=== PATIENT | female | born 1960 | race African-American/Black ===

== ENCOUNTER 2020-09-05 12:10 | Outpatient (CLI) | payer OTHER, SELFPAY ==
--- NOTE | ~2020-09-05 | US_ITS ---
EXAMINATION:US venous doppler LE LT INDICATION:Left leg pain TECHNIQUE: Multiple grayscale, color flow and Doppler images of the left lower extremity deep venous systems were obtained and reviewed. COMPARISON:No prior studies for comparison. FINDINGS: The common femoral, superficial femoral and popliteal veins demonstrate normal respiratory variation, augmentation and compressibility. Color flow is also seen within the posterior tibial, pe roneal, greater saphenous and profunda veins. IMPRESSION: 1: No lower extremity deep venous thrombosis. Reviewed, dictated and finalized at location A.
[2020-09-05 13:30] LABS: Hemoglobin A1C 6.3 % (<5.7)
[2020-09-05 13:31] LABS: Alanine Aminotransferase 81 U/L (4-35); Albumin Level 4.2 g/dL (3.5-5.1); Alkaline Phosphatase 83 U/L (38-126); Anion Gap 4 mmol/L (8-16); Aspartate Amino Transferase 56 U/L (14-36); Basophils Percent Auto 0.2 % (0.2-1.2); Bilirubin,Total 0.2 mg/dL (0.2-1.3); Blood Urea Nitrogen 14 mg/dL (7-17); Calcium 9.7 mg/dL (8.4-10.2); Carbon Dioxide 32 mmol/L (22-30); Chloride 104 mmol/L (98-107); Cholesterol 170 mg/dL (0-200); Eosinophils Absolute Auto 0.1 K/mm3 (0-0.3); Eosinophils Percent Auto 1.6 % (0-4.4); Estimated Glomerular Filt Rate > 60; Glucose 91 mg/dL (65-105); HDL Direct 53 mg/dL; Hematocrit 37.4 % (37.0-47.0); Hemoglobin 11.7 g/dL (12.0-15.0); Immature Granulocyte Absolute 0.01 K/mm3 (0.00-0.031); Immature Granulocyte Percent A 0.2 % (0-0.5); Lymphocytes Absolute Auto 3.12 K/mm3 (0.9-3.2); Lymphocytes Percent Auto 50.1 % (18.3-44.2); Mean Corpuscular HGB Conc 31.3 g/dl (32-36); Mean Corpuscular Hemoglobin 26.5 pg (26-34); Mean Corpuscular Volume 84.6 fl (80-100); Mean Platelet Volume 10.2 fl (7.4-10.4); Monocytes Absolute Auto 0.6 K/mm3 (0.1-0.6); Neutrophils Absolute Auto 2.4 K/mm3 (1.3-6.7); Neutrophils Percent Auto 38.9 % (45.5-73.1); Platelet Count Result 304 k/mm3 (150-375); Potassium 3.8 mmol/L (3.4-5.0); Red Blood Count 4.42 M/mm3 (4.2-5.4); Red Cell Distribution Width 14.6 % (11.5-14.5); Sodium 140 mmol/L (137-145); Triglycerides 75 mg/dL (<150); White Blood Count 6.2 K/mm3 (4.5-10.0)
[2020-09-05 13:42] LABS: LDL Cholesterol Direct 80 mg/dL
[2020-09-05 13:50] LABS: Microalbumin Urine Random 7.9 mg/L (0-16.7)
[2020-09-05 13:52] LABS: Creatinine Urine 130.4 mg/dL; MALB Creatinine Ratio 6.1 mg/g (0-30)
== END 2020-09-05 12:11 | disposition home or self-care (01) ==
LOC: ANHIMG 12:14
PROVIDERS: PCP Internal Medicine; Visit Provider Internal Medicine
DX: M79.662 Pain in left lower leg (principal); E11.9 Type 2 diabetes mellitus without complications; Z86.39 Personal history of other endocrine, nutritional and metabolic disease; I10 Essential (primary) hypertension
CPT/HCPCS: 36415; 80053; 80061; 82043; 83036; 84443; 85025; 93971

== ENCOUNTER 2020-09-07 10:18 | Outpatient (CLI) | payer OTHER, SELFPAY ==
--- NOTE | ~2020-09-07 | MM_ITS ---
EXAMINATION: MM screening pamela BI w monie HISTORY: Screening mammogram TECHNIQUE: Craniocaudal and mediolateral oblique 3-D tomosynthesis images were obtained and synthetic 2-D images were generated. CAD analysis was submitted and interpreted. COMPARISON: No prior mammogram is available for comparison at this institution. BREAST PARENCHYMAL COMPOSITION: The breasts are almost entirely fatty. FINDINGS: There is no evidence of suspicious mass, calcification, or architectural distortion to sugg est malignancy in either breast. IMPRESSION: 1. No mammographic evidence of malignancy. 2. Recommend routine screening mammography in one year. BI-RADS Category 1: Negative Reviewed, dictated and finalized at location A.
== END 2020-09-07 10:19 | disposition home or self-care (01) ==
LOC: ANHIMG 10:21
PROVIDERS: PCP Internal Medicine; Visit Provider Internal Medicine
DX: Z12.31 Encounter for screening mammogram for malignant neoplasm of breast (principal)
CPT/HCPCS: 77063; 77067

== ENCOUNTER 2020-09-27 08:06 | Outpatient (CLI) | payer OTHER, SELFPAY ==
--- NOTE | ~2020-09-27 | US_ITS ---
EXAMINATION: US abdomen limited DATE: 09/27/2020 08:37 INDICATION: Elevated liver function tests TECHNIQUE: Multiple grayscale and Doppler ultrasound images of the abdomen were obtained. COMPARISON: None available FINDINGS: The head and body of the pancreas are normal. The pancreatic tail is obscured by bowel gas. The liver demonstrates increased echogenicity, heterogenous echotexture, and decreased through trans mission. No surface nodularity. Normal hepatopetal flow in the main portal vein. The gallbladder is n ormal with no abnormal wall thickening, pericholecystic fluid or stones. The normal common bile duct measures 4 mm. There was no sonographic Vazquez sign. IMPRESSION: 1. Diffuse hepatic steatosis. Reviewed, dictated and finalized at location B.
== END 2020-09-27 08:07 | disposition home or self-care (01) ==
PROVIDERS: PCP Internal Medicine; Visit Provider Internal Medicine
DX: K76.0 Fatty (change of) liver, not elsewhere classified (principal); R74.8 Abnormal levels of other serum enzymes
CPT/HCPCS: 76705

== ENCOUNTER → 2020-12-30 00:40 | Outpatient (CLI) | payer OTHER, SELFPAY ==
[2020-12-30 16:45] LABS: SARS-CoV-2 RNA PCR Negative
== END ==
PROVIDERS: PCP Internal Medicine; Visit Provider Internal Medicine Gastroenterology
DX: Z01.812 Encounter for preprocedural laboratory examination (principal); Z20.822 Contact with and (suspected) exposure to COVID-19
CPT/HCPCS: C9803; U0003; U0005

== ENCOUNTER 2021-01-03 01:22 | Day surgery (SDC) | payer OTHER, SELFPAY ==
[2020-12-20 14:10] VITALS: BMI 45.2
--- NOTE | 2021-01-02 09:16 | P.PNAN_ITS ---
Anes - Initial Pre Proc Eval Procedure: Operation Date: 01/03/21 09:30 Proposed Procedures p Screening Colonoscopy - Mao Quinones MD Date/Time: 01/02/21 09:16 Surgeon: Mao Quinones MD Pre Op Diagnosis: neoplasm screening Patient Data Age: 60 Gender: F Height: 1.6 m Weight: 115.9 kg Allergies Allergy/AdvReac Type Severity Reaction Status Date / Time codeine Allergy Room Verified 12/20/20 14:10 spinning Home Medications Medication Instructions Recorded Confirmed Type aspirin 81 mg tablet,delayed 81 mg PO DAILY 09/05/20 01/03/21 History release cholecalciferol (vitamin D3) 125 5,000 unit PO DAILY cap 09/05/20 01/03/21 History mcg (5,000 unit) capsule fluticasone propionate [Flonase] 2 spray INTRANASAL DAILY 01/03/21 01/03/21 History Patient hx anesthesia problems: none Family hx anesthesia problems: none [facility] Past Medical History Medical History (Updated 01/03/21 @ 08:35 by Alonzo Chiu DO) Morbid obesity due to excess calories Surgical History Surgical History (Updated 09/05/20 @ 10:14 by Adriana Conner CMA) H/O dilation and curettage Family History Family History (Updated 09/05/20 @ 10:08 by Adriana Conner CMA) Sibling Heart disease Social History Social History (Updated 09/05/20 @ 10:08 by Adriana Conner [facility]) Smoking status: Never smoker Alcohol intake: never Substance use type: does not use Living arrangements: with family Gender identity (if verbalized by the patient): Female Anes - Eval Final PreProcedure Day of Procedure 01/02/21 09:16 Patient weight: morbidly obese Heart: regular rate and rhythm Lungs: clear to auscultation and normal air movement Airway: Mallampati scale class II Neurological: alert and oriented Last oral intake: >/= 8 hours ASA classification: III Emergent: no Anesthetic plan: proceed Anesthesia type and monitoring: general GIVS and standard monitoring Informed Consent: The patient's anesthetic plan and its attendant risks and benefits were discussed with the patient/family/POA. Questions were solicited and answers provided to the satisfaction of the patient/family/POA.
[2021-01-03 08:15] VITALS: BP 150/81; PULSE 73; RESP 17; TEMP 36; O2SAT 99
[2021-01-03] MEDS: LACTATED RINGERS 1,000 ML 150 ML IV CONT (08:20)
--- NOTE | 2021-01-03 09:26 | PM.HPGS ---
History of Present Illness History of Present Illness Consent: Risks, benefits, and alternatives have been discussed and questions answered. Patient agrees to proceed with procedure. Chief complaint: neoplasm screening Narrative: Lynn Marques is a 60 year old female referred for colon cancer screening Review of Systems Review of Systems: All systems reviewed & are unremarkable except as noted in HPI and below PMFSH Past Medical History Medical History Morbid obesity due to excess calories Surgical History Surgical History H/O dilation and curettage Family History Family History Sibling Heart disease Social History Social History Smoking status: Never smoker Alcohol intake: never Substance use type: does not use Living arrangements: with family Gender identity (if verbalized by the patient): Female Meds Home Medications and Allergies Home Medications Medication Instructions Recorded Confirmed Type aspirin 81 mg tablet,delayed 81 mg PO DAILY 09/05/20 01/03/21 History release cholecalciferol (vitamin D3) 125 5,000 unit PO DAILY cap 09/05/20 01/03/21 History mcg (5,000 unit) capsule fluticasone propionate [Flonase] 2 spray INTRANASAL DAILY 01/03/21 01/03/21 History Allergies Allergy/AdvReac Type Severity Reaction Status Date / Time [facility] Allergy Room Verified 12/20/20 14:10 spinning Vital Signs Vital Signs - 24 hr 01/03/21 08:15 Temperature 36.0 C L Pulse Rate 73 Respiratory Rate 17 Blood Pressure 150/81 H Pulse Oximetry 99 Exam Const: General: alert Orientation/consciousness: patient oriented x3 Resp: Auscultation: clear to auscultation bilaterally Cardio: Rhythm: regular rhythm GI: GI Palp: Yes Soft to palpation and No Tenderness to palpation present (GI) Neuro: General: patient oriented x3 Assessment and Plan Assessment and plan (1) Colon cancer screening: Code(s): Z12.11 - Encounter for screening for malignant neoplasm of colon Status: Acute
[2021-01-03 09:52] VITALS: BP 129/76; PULSE 61; RESP 17; O2SAT 100
[2021-01-03 10:02] VITALS: BP 132/77; PULSE 60; RESP 20; O2SAT 100
[2021-01-03 10:12] VITALS: BP 134/78; PULSE 68; RESP 22; O2SAT 99
== END 2021-01-03 10:17 | disposition home or self-care (01) ==
PROVIDERS: PCP Internal Medicine; Visit Provider Internal Medicine Gastroenterology
PROC: 0DJD8ZZ Inspection of Lower Intestinal Tract, Via Natural or Artificial Opening Endoscopic (ICD-10-PCS; CPT 45378; principal; 2021-01-03 09:30)
DX: Z12.11 Encounter for screening for malignant neoplasm of colon (principal); D12.0 Benign neoplasm of cecum; K63.5 Polyp of colon; Z79.82 Long term (current) use of aspirin; E66.01 Morbid (severe) obesity due to excess calories; Z68.41 Body mass index [BMI] 40.0-44.9, adult
CPT/HCPCS: 45385; 88305; C9803; J2704; J7120; U0003; U0005

== ENCOUNTER 2021-01-05 09:35 | Outpatient (CLI) | payer OTHER, SELFPAY ==
[2021-01-05 12:05] LABS: Hemoglobin A1C 6.7 % (<5.7)
== END 2021-01-05 09:36 | disposition home or self-care (01) ==
PROVIDERS: PCP Internal Medicine; Visit Provider Internal Medicine
DX: Z86.39 Personal history of other endocrine, nutritional and metabolic disease (principal)
CPT/HCPCS: 36415; 83036

== ENCOUNTER 2021-01-24 20:16 | Inpatient (IN) | payer OTHER, SELFPAY ==
[2021-01-24] VITALS (12 sets, daily range): BP systolic 126–150; BP diastolic 77–94; PULSE 93–105; RESP 31–49; TEMP 37.1; O2SAT 50–100
--- NOTE | ~2021-01-24 | XR_ITS ---
XR chest 1V portable 01/31/2021 06:36 Indication: Respiratory failure Procedure: AP portable chest Comparison: Comparison to multiple prior studies sequentially, with oldest reviewed study dated 01/24. Findings: Stable extensive patchy bilateral airspace disease. No significant effusion or pneumothorax . Heart size normal. No acute osseous abnormality. Impression: 1: Stable extensive patchy bilateral airspace disease, most likely pneumonia versus edema. Reviewed, dictated and finalized at location A. Impression: 1: Stable extensive patchy bilateral airspace disease, most likely pneumonia ve rsus edema.
--- NOTE | ~2021-01-24 | CT_ITS ---
EXAMINATION: CTA chest PE protocol DATE: 01/25/2021 10:13 INDICATION: Shortness of breath. TECHNIQUE: Computed tomography angiography (CTA) of the chest was performed with 100 mL Omnipaque-350 intravenous contrast timed to evaluate the pulmonary arteries. Coronal maximum intensity projection 3D-reconstructions were created by the technologist. Automated exposure control and iterative reconst ruction technique were employed. The dose-length product was 741.63 mGy-cm. COMPARISON: Chest 2 views 01/24/2021 FINDINGS: There are airspace opacities and ground glass opacities involving all lobes with a peripher al predominance. No pleural effusion. Cardiomegaly is noted. No pericardial effusion. There is no pul monary embolus. There is mild thoracic spondylosis. There is mild chronic anterior wedging of T7 and T8 vertebral bodies. IMPRESSION: 1. No pulmonary embolus. Sensitivity is mildly decreased by motion artifact. 2. Severe diffuse lung disease, consistent with pneumonia such as COVID-19 pneumonia. 3. Cardiomegaly. Reviewed, dictated and finalized at location A. IMPRESSION: 1. No pulmonary embolus. Sensitivity is mildly decreased by motion artifact. 2. Severe diffuse lung disease, consistent with pneumonia such as COVID-19 pneu monia. 3. Cardiomegaly.
--- NOTE | ~2021-01-24 | XR_ITS ---
EXAMINATION: XR chest 1V portable INDICATION: Respiratory failure TECHNIQUE: Portable AP chest at 0511 hours COMPARISON: 01/27/2021 FINDINGS: Diffuse opacities persist in all lung zones without significant change. There is no pleural effusion or pneumothorax. The cardiomediastinal silhouette is stable. IMPRESSION: 1. Stable diffuse lung disease, consistent with pneumonia and/or pulmonary edema and/or acute respira tory distress syndrome (ARDS). Reviewed, dictated and finalized at location A. IMPRESSION: 1. Stable diffuse lung disease, consistent with pneumonia and/or pulmonary kole a and/or acute respiratory distress syndrome (ARDS).
--- NOTE | ~2021-01-24 | XR_ITS ---
EXAMINATION: XR chest 1V portable INDICATION: Respiratory failure TECHNIQUE: Portable AP chest at 0509 hours COMPARISON: 01/24/2021 FINDINGS: Diffuse opacities persist in all lung zones with slight worsening in the right upper lung z one. There is no pleural effusion or pneumothorax. The cardiomediastinal silhouette is normal. IMPRESSION: 1. Diffuse lung disease with interval worsening in the right upper lung zone, consistent with pneumon ia and/or pulmonary edema. Reviewed, dictated and finalized at location A. IMPRESSION: 1. Diffuse lung disease with interval worsening in the right upper lung zone, c onsistent with pneumonia and/or pulmonary edema.
--- NOTE | ~2021-01-24 | XR_ITS ---
XR chest 1V portable 01/29/2021 06:34 Indication: Respiratory failure Procedure: AP portable chest Comparison: Comparison to multiple prior studies sequentially, with oldest reviewed study dated 01/24. Findings: Heart size normal. Diffuse bilateral airspace disease. No significant effusion or pneumotho rax. No acute osseous abnormality. Impression: 1: Unchanged diffuse bilateral airspace disease which may represent pneumonia or edema. Reviewed, dictated and finalized at location A. Impression: 1: Unchanged diffuse bilateral airspace disease which may represent pneumonia o r edema.
--- NOTE | ~2021-01-24 | XR_ITS ---
EXAMINATION: XR chest 2V DATE: 01/24/2021 20:56 INDICATION: Shortness of breath and cough TECHNIQUE: frontal and lateral views of the chest were obtained. COMPARISON: None FINDINGS: Patchy airspace opacities in the bilateral mid and lower lung zones consistent with pneumonia. No ple ural effusion or pneumothorax. The cardiomediastinal silhouette is normal. Mild to moderate thoracic spondylosis. IMPRESSION: 1. Patchy bilateral lung disease consistent with pneumonia. Reviewed, dictated and finalized at location A.
--- NOTE | 2021-01-24 20:19 | ECG_ITS ---
Measurements Intervals [place] Rate: 108 P: 48 KS: 168 QRS: -19 QRSD: 83 T: 53 QT: 313 QTc: 420 Interpretive Statements SINUS TACHYCARDIA INFERIOR INFARCT, AGE INDETERMINATE BASELINE ARTIFACT- V1-V3 ABNORMAL ECG Electronically Signed On 01-25-2021 5:48:13 CDT by Kiran Camejo D.O.
--- NOTE | 2021-01-24 21:18 | PC.NURSE ---
Pt. son number [phone] call before any procedures on pt.
[2021-01-24 21:28] LABS: Basophils Percent Auto 0.1 % (0.2-1.2); Hematocrit 37.7 % (37.0-47.0); Hemoglobin 11.6 g/dL (12.0-15.0); Immature Granulocyte Absolute 0.07 K/mm3 (0.00-0.031); Immature Granulocyte Percent A 0.7 % (0-0.5); Lymphocytes Absolute Auto 1.88 K/mm3 (0.9-3.2); Mean Corpuscular HGB Conc 30.8 g/dl (32-36); Mean Corpuscular Hemoglobin 25.6 pg (26-34); Mean Corpuscular Volume 83.2 fl (80-100); Mean Platelet Volume 9.6 fl (7.4-10.4); Monocytes Absolute Auto 0.5 K/mm3 (0.1-0.6); Monocytes Percent Auto 5.2 % (2.6-8.5); Platelet Count Result 337 k/mm3 (150-375); Red Blood Count 4.53 M/mm3 (4.2-5.4); White Blood Count 9.4 K/mm3 (4.5-10.0)
[2021-01-24 21:38] LABS: Anion Gap 7 mmol/L (8-16); Blood Urea Nitrogen 13 mg/dL (7-17); Calcium 9.6 mg/dL (8.4-10.2); Carbon Dioxide 30 mmol/L (22-30); Chloride 97 mmol/L (98-107); Estimated CRCL calculation 87 ml/min; Estimated Glomerular Filt Rate > 60; Glucose 155 mg/dL (65-110); Potassium 3.5 mmol/L (3.4-5.0); Sodium 134 mmol/L (137-145)
[2021-01-24] MEDS: DEXAMETHASONE SOD PHOS INJ 4 MG/ML VIAL 6 MG IV PUSH (21:55)
[2021-01-24 22:17] LABS: Lactic Acid Reflex 1.1 mmol/L (0.7-2.1)
[2021-01-24 22:18] LABS: Alanine Aminotransferase 51 U/L (4-35); Albumin Level 3.6 g/dL (3.5-5.1); Alkaline Phosphatase 63 U/L (38-126); Anion Gap 5 mmol/L (8-16); Aspartate Amino Transferase 61 U/L (14-36); Bilirubin,Total 0.4 mg/dL (0.2-1.3); Blood Urea Nitrogen 13 mg/dL (7-17); Calcium 9.2 mg/dL (8.4-10.2); Carbon Dioxide 29 mmol/L (22-30); Chloride 95 mmol/L (98-107); Estimated CRCL calculation 100 ml/min; Estimated Glomerular Filt Rate > 60; Glucose 155 mg/dL (65-110); Potassium 3.5 mmol/L (3.4-5.0); Sodium 129 mmol/L (137-145)
[2021-01-24 22:21] LABS: Prothrombin Time 12.8 Seconds (11.1-14.7)
[2021-01-24 22:29] LABS: Troponin I < 0.012 ng/mL (0.000-0.034)
--- NOTE | 2021-01-24 22:52 | ED.SOB ---
HPI - SOB/Dyspnea General Chief Complaint: Shortness of Breath/Dyspnea Stated Complaint: pneumonia - want a chest xray Time Seen by Provider: 01/24/21 21:07 Source: patient and family Mode of arrival: ambulatory Limitations: no limitations History of Present Illness HPI Narrative: 61-year-old with a no major medical problems was brought in by family with complaints of cough and shortness of breath for past 1 week . Family brought IN for chest x-ray. Patient denies any chest pain, nausea or vomiting. Patient has not been vaccinated against Covid. MD elicited complaint: shortness of breath and cough Onset (ago): week(s) (1) Timing: constant Exacerbating factors: nothing Related Data Home oxygen amount: none Home Medications Medication Instructions Recorded Confirmed No Home Medications 01/24/21 01/24/21 Allergies Allergy/AdvReac Type Severity Reaction Status Date / Time codeine Allergy Room Verified 01/24/21 21:19 spinning Review of Systems Review of Systems: All systems reviewed & are unremarkable except as noted in HPI and below Constitutional: Constitutional: Reports no additional constitutional complaints ENT: Reports system reviewed and no additional complaints, except as documented Cardiovascular: Cardiovascular: Reports no additional cardiovascular complaints Respiratory: Respiratory: Reports as per HPI Gastrointestinal: Gastrointestinal: Reports no additional gastrointestinal complaints Musculoskeletal: Musculoskeletal: Reports no additional musculoskeletal complaints PMFSH Past Medical History Medical History Morbid obesity due to excess calories Surgical History Surgical History H/O dilation and curettage Family History Family History Sibling Heart disease Social History Social History Smoking status: Never smoker Alcohol intake: never Substance use type: does not use Gender identity (if verbalized by the patient): Female Exam Narrative: GENERAL: Well-appearing, well-nourished, and in moderate respiratory distress. HEAD: Normocephalic, atraumatic. EYES: PERRLA and EOMI. NECK: Supple. CHEST: Decreased air entry HEART: Regular rate and rhythm. No murmur heard. Normal peripheral pulses. ABDOMEN: Soft, nontender, nondistended, normal active bowel sounds. EXTREMITIES: Normal range of motion. No edema. SKIN: Warm, dry, no rash. NEURO: No focal deficits. Alert and oriented x3. PSYCH: Normal mood and affect. Course Course Emergency Course: Inform patient about her lab work, chest x-ray findings I discussed with her son informed him about the x-ray findings. She will be admitted to the hospital. We will start her on IV antibiotic till we get the Covid screen. I discussed with Dr. Silveira who agreed to admit the patient Vital Signs Vital signs: Vital Signs Temperature 37.1 C 01/24/21 21:13 Pulse Rate 105 H 01/24/21 21:13 Respiratory Rate 39 H 01/24/21 21:13 Blood Pressure 141/77 H 01/24/21 21:13 Pulse Oximetry 50 L 01/24/21 21:13 Temperature 37.1 C 01/24/21 21:13 Pulse Rate 99 01/24/21 22:31 Respiratory Rate 38 H 01/24/21 22:31 Blood Pressure 146/90 H 01/24/21 22:31 Pulse Oximetry 97 01/24/21 22:01 MDM - SOB/Dyspnea MDM Narrative Medical decision making narrative: With a given history of of progressive shortness of breath for past 1 week and patient has not been vaccinated I suspect more Covid pneumonia however we will do CBC chemistry blood cultures and a chest x-ray meanwhile we will start her on Rocephin and Zithromax we will also give her IV Decadron 6 mg. Lab Data Result diagrams: 01/24/21 21:22 01/24/21 21:50 Labs: Lab Results 01/24/21 01/24/21 01/24/21 Range/Units 21:22 21:22 21:
--- NOTE | 2021-01-24 23:12 | PC.NURSE ---
Respiratory to room at this time.
--- NOTE | 2021-01-24 23:35 | PC.NURSE ---
Family consulted about antibiotics at this time per request of pt. Importance of antibiotics in pt's treatment plan thoroughly discussed with pt's family. Family requesting time to think about whether or not they would like to allow administration of antibiotics.
--- NOTE | 2021-01-24 23:43 | PCRCNOTE ---
Attempted HFNC at 15 lpm at 2330, SpO2 would not get higher than 87%. Placed back on 100% NRB, nurse and physician notified.
--- NOTE | 2021-01-24 23:59 | PC.NURSE ---
Consent for antibiotic administration given by children.
[2021-01-25] VITALS (25 sets, daily range): BP systolic 124–163; BP diastolic 74–96; PULSE 74–96; RESP 18–36; TEMP 36.4–37.8; O2SAT 83–97; BMI 44.1
--- NOTE | 2021-01-25 00:17 | PC.NURSE ---
Unit reports SBAR not received, SBAR to be tubed.
--- NOTE | 2021-01-25 00:53 | PC.NURSE ---
This patient, Lynn Marques, was admitted to 3 Med Surg Room 331-01 @01:00. Report taken from Summer RN in ED. Patient/family oriented to hospital policies and general routines including ID bracelet, bed and alarms, visiting hours, pain management, procedures, bathroom and other care routines, personal items, smoking policy, room service/diet, and visiting hours. Information on how to activate the Rapid Response Team has been discussed. Patient/Family are encouraged to report perceived risks to care and to ask questions if they do not understand what they are told or what they should do.
[2021-01-25] MEDS: ACETAMINOPHEN 325 MG TABLET 650 MG PO ×2 (01:44→23:59)
[2021-01-25] MEDS: SODIUM CHLORIDE 0.9% IV 1,000 ML 75 ML IV CONT (02:42)
--- NOTE | 2021-01-25 03:56 | PM.IMHP ---
H&P: HPI History of Present Illness Date/Time: 01/25/21 03:56 Chief Complaint: Shortness of breath Narrative: 61-year-old with a no major medical problems was brought in by family with complaints of cough and shortness of breath for past 1 week . Family brought IN for chest x-ray and evaluation. Patient denies any chest pain, nausea or vomiting. Patient has not been vaccinated against Covid. SHE REPORTS FLU-LIKE SYMPTOMS WITH COUGH AND SHORTNESS OF BREATH OVER PAST WEEK WITH PROGRESSIVE WORSENING. IN THE ER SHE WAS NOTED TO BE HYPOXIC AT 50% ON ROOM AIR AND WAS PLACED ON NON-REBREATHER MASK. SHE FEELS BETTER SINCE HE HAS BEEN ON NON-REBREATHER MASK. Review of Systems Review of Systems: - CONSTITUTIONAL: Denies weight loss, fever and chills. - HEENT: Denies changes in vision and hearing - RESPIRATORY: REPORTS SOB and cough. - CV: Denies palpitations and CP. - GI: Denies abdominal pain, nausea, vomiting and diarrhea. - : Denies dysuria and urinary frequency. - MSK: Denies myalgia and joint pain. - SKIN: Denies rash and pruritus. - NEUROLOGICAL: Denies headache and syncope. - PSYCHIATRIC: Denies recent changes in mood. Denies anxiety and depression. All systems reviewed & are unremarkable except as noted in HPI and below Constitutional: Constitutional: Reports fatigue and Reports weakness Neurologic: Reports weakness Endocrine: Endocrine: Reports fatigue PMFSH Past Medical History Medical History Morbid obesity due to excess calories Surgical History Surgical History H/O dilation and curettage Family History Family History Sibling Heart disease Social History Social History Smoking status: Never smoker Alcohol intake: never Substance use: never Substance use type: does not use Gender identity (if verbalized by the patient): Female Spiritual care concerns: No Meds Home Medications and Allergies Home Medications Medication Instructions Recorded Confirmed Type No Home Medications 01/24/21 01/24/21 History Allergies Allergy/AdvReac Type Severity Reaction Status Date / Time codeine Allergy Room Verified 01/24/21 21:19 spinning Vital Signs Vital Signs - 24 hr 01/24/21 21:13 01/24/21 21:14 01/24/21 21:16 Temperature 98.7 F Pulse Rate 105 H 104 H 105 H Respiratory Rate 39 H 41 H 37 H Blood Pressure 141/77 H 141/77 H 138/83 Pulse Oximetry 50 L 90 91 01/24/21 21:17 01/24/21 21:31 01/24/21 21:46 Temperature Pulse Rate 103 H 102 H 102 H Respiratory Rate 45 H 49 H Blood Pressure 140/84 126/85 Pulse Oximetry 90 95 95 01/24/21 22:01 01/24/21 22:16 01/24/21 22:31 Temperature Pulse Rate 101 H 99 99 Respiratory Rate 33 H 37 H 38 H Blood Pressure 139/86 144/87 H 146/90 H Pulse Oximetry 97 01/24/21 22:47 01/24/21 23:01 01/24/21 23:47 Temperature Pulse Rate 98 97 93 Respiratory Rate 42 H 44 H 31 H Blood Pressure 133/94 H 146/89 H 150/89 H Pulse Oximetry 94 100 92 01/25/21 00:17 01/25/21 00:32 01/25/21 00:47 Temperature Pulse Rate 85 86 86 Respiratory Rate 31 H 32 H 36 H Blood Pressure 151/96 H 124/74 145/93 H Pulse Oximetry 94 95 95 01/25/21 01:05 01/25/21 01:44 Temperature 100.0 F H 100.0 F H Pulse Rate 87 Respiratory Rate 20 Blood Pressure 133/85 Pulse Oximetry 91 Exam Narrative: GENERAL: Well-appearing, well-nourished, and in NO ACUTE respiratory distress. HEAD: Normocephalic, atraumatic. EYES: PERRLA and EOMI. NECK: Supple. NONTENDER CHEST: Decreased air entry BILATERAL DECREASED BREATH SOUNDS NO RESPIRATORY DISTRESS HEART: Regular rate and rhythm. No murmur heard. Normal peripheral pulses. ABDOMEN: Soft, nontender, nondistended, normal active bowel sounds. EXTREMITIES: Normal range of
[2021-01-25 07:10] LABS: Basophils Percent Auto 0.1 % (0.2-1.2); Hematocrit 35.5 % (37.0-47.0); Hemoglobin 10.9 g/dL (12.0-15.0); Immature Granulocyte Absolute 0.07 K/mm3 (0.00-0.031); Lymphocytes Absolute Auto 1.15 K/mm3 (0.9-3.2); Lymphocytes Percent Auto 16.2 % (18.3-44.2); Mean Corpuscular HGB Conc 30.7 g/dl (32-36); Mean Corpuscular Hemoglobin 25.6 pg (26-34); Mean Corpuscular Volume 83.3 fl (80-100); Mean Platelet Volume 9.8 fl (7.4-10.4); Monocytes Absolute Auto 0.2 K/mm3 (0.1-0.6); Monocytes Percent Auto 3.1 % (2.6-8.5); Neutrophils Absolute Auto 5.7 K/mm3 (1.3-6.7); Neutrophils Percent Auto 79.6 % (45.5-73.1); Platelet Count Result 334 k/mm3 (150-375); Red Blood Count 4.26 M/mm3 (4.2-5.4); Red Cell Distribution Width 14.7 % (11.5-14.5); White Blood Count 7.1 K/mm3 (4.5-10.0)
[2021-01-25 07:22] LABS: Alanine Aminotransferase 50 U/L (4-35); Albumin Level 3.6 g/dL (3.5-5.1); Alkaline Phosphatase 63 U/L (38-126); Anion Gap 5 mmol/L (8-16); Aspartate Amino Transferase 59 U/L (14-36); Bilirubin,Total 0.3 mg/dL (0.2-1.3); Blood Urea Nitrogen 13 mg/dL (7-17); Calcium 9.3 mg/dL (8.4-10.2); Carbon Dioxide 31 mmol/L (22-30); Chloride 97 mmol/L (98-107); Estimated CRCL calculation 101 ml/min; Estimated Glomerular Filt Rate > 60; Glucose 183 mg/dL (65-110); Sodium 133 mmol/L (137-145)
[2021-01-25 07:41] LABS: D Dimer 1.02 ug/mL (<0.48)
[2021-01-25 08:18] LABS: CRP 16.2 mg/dL (<1.0)
[2021-01-25 08:40] LABS: Procalcitonin 0.4 ng/mL
[2021-01-25 08:48] LABS: NT Pro B Type Natriuretic Pept 68 pg/mL (5-100)
[2021-01-25 08:49] LABS: Alveolar/Arterial O2 Gradient 603.5 mmHg; Carboxyhemoglobin 0.3 % THb (0-2.0); Fractional Inspired Oxygen 100 %; HCO3 ABG 30.4 mEq/l (22.0-26.0); Methemoglobin ABG 0.1 %THb (0-1.5); Oxygen Saturation ABG 94.1 % (95.0-100.0); Oxyhemoglobin 92.1 % THb (90.0-100.0); PCO2 ABG 43.2 mmHg (35.0-45.0); PO2 ABG 66.3 mmHg (80.0-100.0); PO2 FiO2 Ratio Arterial Blood 0.66 %; Reduced Hemoglobin 7.5 %THb (0-5.0); Total Hemoglobin 12.3 g/dL (12.0-18.0); pH ABG 7.465 (7.350-7.450)
[2021-01-25 08:50] LABS: Device NON-REBREATHER MASK; Modified Allen's Test Pass; Site Drawn LEFT RADIAL
[2021-01-25 09:10] LABS: Hepatitis B Surface Antigen Negative (Negative)
[2021-01-25 09:16] LABS: HAV RESULT Negative (Negative); Hepatitis B Core IgM Result Negative (Negative)
[2021-01-25] MEDS: ENOXAPARIN 40 MG/0.4 ML SYRINGE SUB-Q ×2 (09:25→20:16)
[2021-01-25] MEDS: DEXAMETHASONE SOD PHOS INJ 4 MG/ML VIAL 6 MG IV PUSH ×2 (09:26→16:51)
[2021-01-25 09:27] LABS: INR 0.9; Prothrombin Time 12.2 Seconds (11.1-14.7)
[2021-01-25 09:28] LABS: Hepatitis C Virus Antibody Negative (Negative)
--- NOTE | 2021-01-25 09:30 | P.PNIM_ITS ---
Progress Note: A&P Assessment and Plan (1) COVID-19: Code(s): U07.1 - COVID-19 Status: Acute Assessment and Plan: * COVID swab came back positive * Patient upgraded to Bipap throughout the night * Redesivir and Toci were both infused * Decadron was increased to BID * Supportive care (2) Acute respiratory failure: Code(s): J96.00 - Acute respiratory failure, unspecified whether with hypoxia or hypercapnia Status: Acute Assessment and Plan: * COVID vs pneumonia * White blood cell count 7.1 * COVID pending * Supplemental oxygen * PULM consult * Supportive care * CTA of the chest to rule out PE * Blood gas shows partially compensated respiratory alkalosis * Maintain saturation above 92% (3) Pneumonia: Qualifiers: Laterality: bilateral Lung location: lower lobe of lung Pneumonia type: due to unspecified organism Qualified Code(s): J18.9 - Pneumonia, unspecified organism Code(s): J18.9 - Pneumonia, unspecified organism Status: Acute Assessment and Plan: * Covid pending * Chest xray: Patchy bilateral lung disease consistent with pneumonia * blood cultures pending * Azithromycin 500mg IV Q24hr, Ceftriaxone 1gm Q24hr * WBC 7.1, Neutrophils 79.6 * Supplemental oxygen * Titrate to maintain oxygen level greater than 92% * Pulmonary consult thank you for recommendations * Deescalate antibiotics with culture results (4) Suspected COVID-19 virus infection: Onset Date: ~01/2021 Code(s): Z20.822 - Contact with and (suspected) exposure to COVID-19 Status: Acute Assessment and Plan: * COVID pending * Oxygen requirements increased to 15 L high-flow cannula and 100% on rebreather * Chest x-ray shows bilateral pneumonia * D-dimer 1.02, ferritin 546, CRP 16.2, procalcitonin is 0.4 * Transferred IMU * Pulmonary consult * Decadron 6 mg IV b.i.d. * Toci and remdesivir ordered however patient has refused at this time * Supportive care * Incentive spirometry * Pep therapy (5) Essential hypertension: Code(s): I10 - Essential (primary) hypertension Status: Acute Assessment and Plan: * Blood pressure 132/88 * Trend blood pressure * Q 4 vital signs * Add medications as needed (6) Morbid obesity due to excess calories: Code(s): E66.01 - Morbid (severe) obesity due to excess calories Status: Acute Assessment and Plan: * Monitor (7) Elevated liver enzymes: Code(s): R74.8 - Abnormal levels of other serum enzymes Status: Acute Assessment and Plan: * AST 59 ALT 50 * Hepatitis panel negative * Consider ultrasound * Trend labs * Labs in a.m. Time Spent With Patient Time with patient: Greater than 35 minutes Subjective Date/time seen: 01/25/21 08:00 Interval history: Patient is 61-year-old female with no major medical problems fairly healthy that was brought in with complaints of shortness of breath for the past week. This morning I got a call from nursing stating the patient was on 100% non-rebreather satting in the 80s patient was then put on a high-flow nasal cannula along with a non-rebreather and was satting in 90s. I came to view the patient patient did look okay at that time and had no real complaints that she was feeling okay however she said she did get short of breath with any exertion or any movement. At that time I did explain to the patient about the
--- NOTE | 2021-01-25 09:30 | PM.IMPN ---
Progress Note: A&P Assessment and Plan (1) COVID-19: Code(s): U07.1 - COVID-19 Status: Acute Assessment and Plan: COVID swab came back positive Patient upgraded to Bipap throughout the night Redesivir and Toci were both infused Decadron was increased to BID Supportive care (2) Acute respiratory failure: Code(s): J96.00 - Acute respiratory failure, unspecified whether with hypoxia or hypercapnia Status: Acute Assessment and Plan: COVID vs pneumonia White blood cell count 7.1 COVID pending Supplemental oxygen PULM consult Supportive care CTA of the chest to rule out PE Blood gas shows partially compensated respiratory alkalosis Maintain saturation above 92% (3) Pneumonia: Qualifiers: Laterality: bilateral Lung location: lower lobe of lung Pneumonia type: due to unspecified organism Qualified Code(s): J18.9 - Pneumonia, unspecified organism Code(s): J18.9 - Pneumonia, unspecified organism Status: Acute Assessment and Plan: Covid pending Chest xray: Patchy bilateral lung disease consistent with pneumonia blood cultures pending Azithromycin 500mg IV Q24hr, Ceftriaxone 1gm Q24hr WBC 7.1, Neutrophils 79.6 Supplemental oxygen Titrate to maintain oxygen level greater than 92% Pulmonary consult thank you for recommendations Deescalate antibiotics with culture results (4) Suspected COVID-19 virus infection: Onset Date: ~01/2021 Code(s): Z20.822 - Contact with and (suspected) exposure to COVID-19 Status: Acute Assessment and Plan: COVID pending Oxygen requirements increased to 15 L high-flow cannula and 100% on rebreather Chest x-ray shows bilateral pneumonia D-dimer 1.02, ferritin 546, CRP 16.2, procalcitonin is 0.4 Transferred IMU Pulmonary consult Decadron 6 mg IV b.i.d. Toci and remdesivir ordered however patient has refused at this time Supportive care Incentive spirometry Pep therapy (5) Essential hypertension: Code(s): I10 - Essential (primary) hypertension Status: Acute Assessment and Plan: Blood pressure 132/88 Trend blood pressure Q 4 vital signs Add medications as needed (6) Morbid obesity due to excess calories: Code(s): E66.01 - Morbid (severe) obesity due to excess calories Status: Acute Assessment and Plan: Monitor (7) Elevated liver enzymes: Code(s): R74.8 - Abnormal levels of other serum enzymes Status: Acute Assessment and Plan: AST 59 ALT 50 Hepatitis panel negative Consider ultrasound Trend labs Labs in a.m. Time Spent With Patient Time with patient: Greater than 35 minutes Subjective Date/time seen: 01/25/21 08:00 Interval history: Patient is 61-year-old female with no major medical problems fairly healthy that was brought in with complaints of shortness of breath for the past week. This morning I got a call from nursing stating the patient was on 100% non-rebreather satting in the 80s patient was then put on a high-flow nasal cannula along with a non-rebreather and was satting in 90s. I came to view the patient patient did look okay at that time and had no real complaints that she was feeling okay however she said she did get short of breath with any exertion or any movement. At that time I did explain to the patient about the plan of care for her and what it would look like. She instructed me to talk to her son in which I did talk to him about the medications that I would like to put her on however he is refusing those medications and told her not to take those medications therefore the patient is ultimately refusing those medications at this time. Patient did state that she did not know about any of this because she is never sick does not really going the hospital. Her son's concern was the side effects of the medications which was noted to be renal fa
[2021-01-25] MEDS: guaiFENesin 12 HR 600 MG TABCR PO ×2 (12:00→20:16)
--- NOTE | 2021-01-25 13:52 | PC.NURSE ---
This patient, Lynn Marques, was transferred to [IMU] on 01/25/21 at 1220. Personal belongings sent with patient. Report given to [DENISSE]. Appropriate documentation sent with patient.
--- NOTE | 2021-01-25 14:22 | PM.CNPUL ---
Assessment and Plan Assessment and plan (1) Suspected COVID-19 virus infection: Onset Date: ~01/2021 Code(s): Z20.822 - Contact with and (suspected) exposure to COVID-19 Status: Acute Assessment and Plan: Probable COVID pneumonia with worsening acute respiratory failure; she has no reserve, desaturates with coughing episodes, takes 30 minutes to recover. Admitted 01/24 yesterday after 1 week of symptoms. PLAN: she agreed to take Remdesivir, already on dexamethasone. Actemra is not available, so this is not an issue, especially since she was worried about side effects. Monitor ALT, PT, renal function; ALT is sl elevated at 50, Pt normal, creat clearance is normal. Keep volume status dry. O2 to maintain saturation 90%. Little reserve. Now, alternating between nonrebreather with AirVo with BiPAP; maximum settings with 100% FiO2, with recovery to 94% a half hour after coughing excessively. She is marginal, however does not appear to be on the edge of intubation. DVT prophylaxis. (2) Acute respiratory failure: Code(s): J96.00 - Acute respiratory failure, unspecified whether with hypoxia or hypercapnia Status: Acute Assessment and Plan: was not on O2 at home, presented with RA sat 50%. (3) Pneumonia: Qualifiers: Laterality: bilateral Lung location: lower lobe of lung Pneumonia type: due to unspecified organism Qualified Code(s): J18.9 - Pneumonia, unspecified organism Code(s): J18.9 - Pneumonia, unspecified organism Status: Acute Assessment and Plan: due to COVID; bilateral infiltrates with ground glass opacities History of Present Illness History of Present Illness Consult date: 01/25/21 Requesting physician: Sai Murdock APN-C Reason for consult: other (COVID (highly likely), aacute hypoxemic respiratory failure. ) Chief complaint: pnumonia, hypoxemia Narrative: NEW: Lynn Marques is a 61 yo Female admitted to [address] [place] [address] with suspected COVID yesterday, saturation 50% on room air in the ER; was on non-rebreather mask, moved to IMU with worsening hypoxemia. She is now on AirVo and Non-rebreather mask saturation 85-87%. She has refused treatment medications, saying that she talked about these medications with her son Shelby, and she is worried about the side effects. She has a cough with shortness of breath for the last week, bilateral infiltrates c/w COVID; high ALT 50 (35), ferritin 546 ( upper limit normal = 264) I called Jas, . Explained that she needs to have treatment, and potential risks from medication are not as worrisome as actual threat form from COVID; is she becomes intubated, she will s DATA: * CTA today 01/25/2021 - There are airspace opacities and ground glass opacities involving all lobes with a peripheral predominance. No pleural effusion. Cardiomegaly is noted. No pericardial effusion. There is no pulmonary embolus. There is mild thoracic spondylosis. There is mild chronic anterior wedging of T7 and T8 vertebral bodies. IMPRESSION: 1. No pulmonary embolus. Sensitivity is mildly decreased by motion artifact. 2. Severe diffuse lung disease, consistent with pneumonia such as COVID-19 pneumonia. 3. Cardiomegaly. * ABG 7.465/pCO2 43.7/ pO2 66.3/ HCO2 30.4/sat 94.1%. This was on 15 L/non rebreather mask. * Na 133, K+ 4, Chloride 97, CO2 31, BUN 13, creatinine 0.6, glucose 183, creatinine clearance > 60, D-dimer 1.02, INR 0.9, ALT 50 (normal is 35); AST 59 (nl =36), CRP 16.2 Review of Systems Review of Systems: She has shortness of breath, no cecile chest pain, no abdominal pain, no loss of smell or taste. Decreased appetite. [facility] Past Medical History Medical History Morbid
[2021-01-25] MEDS: REMDESIVIR 200 MG/NS 250 ML 200 MG/250 ML BAG 250 MG IVPB (16:49)
[2021-01-25] MEDS: TOCILIZUMAB 800 MG in SODIUM CHLORIDE 0.9% IV 60 ML 100 MG IVPB (18:08)
[2021-01-25 20:10] LABS: SARS-CoV-2 RNA PCR Positive
[2021-01-25] MEDS: ASCORBIC ACID 500 MG TABLET 1000 MG PO (23:59)
[2021-01-25] MEDS: MELATONIN 3 MG TABLET PO (23:59)
[2021-01-26] VITALS (29 sets, daily range): BP systolic 126–182; BP diastolic 70–97; PULSE 57–85; RESP 19–34; TEMP 36.3–37.1; O2SAT 89–100
--- NOTE | 2021-01-26 02:04 | PC.NURSE ---
0020: Patient's oxygen saturations ranging between 80-91% at maximum amount of oxygen on high flow therapy and non-rebreather. patient's respirations are 25-30's. Charge nurse and MD made aware. Patient to be transferred to ICU for closer monitoring.
--- NOTE | 2021-01-26 02:08 | PC.NURSE ---
This patient, Lynn Marques, was transferred to ICU 12 on 01/26/21 at 0040. Personal belongings sent with patient. Report given to Soraida SHAHID. Appropriate documentation sent with patient. Son (Stella) notified of transfer and requested for dad not to be called with update, but to let dad rest .
--- NOTE | 2021-01-26 02:36 | PM.EVENT ---
Event Note Event Note Event Note: Nursing staff notified me that the patient was unable to maintain her oxygen saturations on Airvo with maximum settings and a non-rebreather. The blister rust eradicator was called and discussed management options with the patient. The patient still the not want to be intubated but nursing staff had already notified me of the patient's condition and had asked me for management recommendations. We moved the patient to the ICU and the patient opted for treatment with BiPAP. However on BiPAP 10/5 the patient was pulling tidal volumes of 800 even when calm and at rest. Her respiratory rate was 40. He changed her settings to a CPAP of 10 and her tidal volumes cane down to around 400 and her oxygen saturations improved to 99% on 100% FiO2. Her respiratory rate came down to 30. Because I wanted to make sure the patient had a backup rate to take a she began to fail her tire out we placed patient on a BiPAP of 10/10 with a backup rate of 12. The patient is currently stable and more comfortable. Less than 15 minutes was spent in critical care activities. This case had a high probability of a clinically significant, sudden, or life threatening deterioration of this patient's condition which required my full and direct attention, intervention and personal management.
[2021-01-26 05:55] LABS: Hematocrit 34.3 % (37.0-47.0); Hemoglobin 10.5 g/dL (12.0-15.0); Mean Corpuscular HGB Conc 30.6 g/dl (32-36); Mean Corpuscular Hemoglobin 25.7 pg (26-34); Mean Corpuscular Volume 84.1 fl (80-100); Mean Platelet Volume 9.8 fl (7.4-10.4); Platelet Count Result 368 k/mm3 (150-375); Red Blood Count 4.08 M/mm3 (4.2-5.4); Red Cell Distribution Width 14.6 % (11.5-14.5); White Blood Count 9.3 K/mm3 (4.5-10.0)
[2021-01-26 06:00] LABS: Prothrombin Time 12.8 Seconds (11.1-14.7)
[2021-01-26 06:07] LABS: Alanine Aminotransferase 44 U/L (4-35); Albumin Level 3.1 g/dL (3.5-5.1); Alkaline Phosphatase 56 U/L (38-126); Anion Gap 8 mmol/L (8-16); Aspartate Amino Transferase 47 U/L (14-36); Bilirubin,Total 0.4 mg/dL (0.2-1.3); Blood Urea Nitrogen 17 mg/dL (7-17); Calcium 8.5 mg/dL (8.4-10.2); Carbon Dioxide 23 mmol/L (22-30); Chloride 101 mmol/L (98-107); Estimated CRCL calculation 101 ml/min; Estimated Glomerular Filt Rate > 60; Glucose 184 mg/dL (65-110); Magnesium 2.2 mg/dL (1.6-2.3); Potassium 4.1 mmol/L (3.4-5.0); Sodium 132 mmol/L (137-145)
[2021-01-26] MEDS: ENOXAPARIN 40 MG/0.4 ML SYRINGE SUB-Q ×2 (09:29→20:32)
[2021-01-26] MEDS: DEXAMETHASONE SOD PHOS INJ 4 MG/ML VIAL 6 MG IV PUSH ×2 (09:29→18:12)
[2021-01-26] MEDS: guaiFENesin 12 HR 600 MG TABCR PO ×2 (09:30→20:30)
[2021-01-26] MEDS: ASCORBIC ACID 500 MG TABLET 1000 MG PO ×2 (09:30→20:30)
[2021-01-26] MEDS: CHOLECALCIFEROL 1,000 UNITS TABLET 1000 UNITS PO (09:30)
[2021-01-26] MEDS: ZINC SULFATE 220 MG CAPSULE PO (09:30)
--- NOTE | 2021-01-26 09:40 | WPDCNINT ---
Assessment and Plan Assessment and plan (1) Acute respiratory failure: Code(s): J96.00 - Acute respiratory failure, unspecified whether with hypoxia or hypercapnia Status: Acute Assessment and Plan: Acute respiratory failure secondary to COVID-19 pneumonia (2) COVID-19: Code(s): U07.1 - COVID-19 Status: Acute Assessment and Plan: SARS-CoV-2 PCR positive Patient is in Airborne, Droplet and Contact Isolation Continue dexamethasone , remdesivir - started 01/25 Tocilizumab - 01/25 Off antibiotics which were started on admission Follow inflammatory periodically (3) Hyperglycemia: Code(s): R73.9 - Hyperglycemia, unspecified Status: Acute Assessment and Plan: Could be secondary to steroids versus undiagnosed diabetes Add sliding scale at this time check HbA1c Additional Plan DVT prophylaxis -Lovenox 40 subQ q.12 hours Stress ulcer prophylaxis -add PPI Nutrition -NPO this Code Status - Full Code Total Critical Care Time - 35 minutes Due to a high probability of clinically significant, life threatening deterioration, the patient required my highest level of preparedness to intervene emergently and I personally spent this critical care time directly and personally managing the patient. This critical care time included obtaining a history; examining the patient; pulse oximetry; ordering and review of studies; arranging urgent treatment with development of a management plan; evaluation of patient's response to treatment; frequent reassessment; and discussions with other providers. It was exclusive of separately billable procedures and treating other patients and teaching time. Please see Assessment and Plan section and the rest of the note for further information on patient assessment and treatment [employer]inder Consult Note Consult date: 01/26/21 Time Seen: 07:45 HPI: Lynn Marques is a 61 year old female who was admitted on 01/25 with chief complaint of cough and shortness of breath for 1 week. ED patient was found to be hypoxic. Chest x-ray showed patchy bilateral lung disease consistent with pneumonia. CTA lung was negative for PE and was consistent with lung disease consistent with pneumonia. Patient was tested and was found positive for COVID-19 pneumonia. Patient was started on antibiotics, dexamethasone, remdesivir and given Actemra. During the hospital stay patient's hypoxia worsened and patient was eventually placed on Airvo. Patient was transferred last night to ICU for worsening of respiratory status and placed on BiPAP. Patient currently on BiPAP and only limited history was obtained due to BiPAP mask. She states her breathing is little better with the mask on and denies any pain.. Review system was unobtainable because of BiPAP Review of Systems Review of Systems: ROS unobtainable: Yes unobtainable due to medical condition PMFSH Past Medical History Medical History Morbid obesity due to excess calories Surgical History Surgical History H/O dilation and curettage Family History Family History Sibling Heart disease Social History Social History Smoking status: Never smoker Alcohol intake: never Substance use: never Substance use type: does not use Gender identity (if verbalized by the patient): Female Spiritual care concerns: No Meds Home Medications and Allergies Home Medications Medication Instructions Recorded Confirmed Type No Home Medications 01/24/21 01/25/21 History Allergies Allergy/AdvReac Type Severity Reaction Status Date / Time codeine Allergy Room Verified 01/24/21 21:19 spinning Vital Signs Vital Signs - 24 hr 01/25/21 12:30 01/25/21 12:50 01/25/21 12:55 Temperature 36.6 C Pulse Rate 85
[2021-01-26] MEDS: REMDESIVIR 100 MG/NS 250 ML 100 MG/250 ML BAG 250 MG IVPB (11:26)
[2021-01-26 11:58] LABS: Glucose Point of Care 170 mg/dl (65-105)
[2021-01-26] MEDS: DOCUSATE SODIUM 100 MG CAPSULE PO (14:50)
[2021-01-26 17:54] LABS: Glucose Point of Care 308 mg/dl (65-105)
[2021-01-26] MEDS: INSULIN ASPART (*BKC) 100 UNITS/ML SUB-Q (18:10)
--- NOTE | 2021-01-26 19:08 | PM.PNPUL ---
Progress Note: A&P Assessment and Plan (1) COVID-19: Code(s): U07.1 - COVID-19 Status: Acute Assessment and Plan: COVID pneumonia with worsening acute respiratory failure; more stable with improved oxygenation; dose not appear to be as close to intubation as she was ysday. Improved mentation with cerebral oxygenation. Admitted 01/24 after 1 week of symptoms. She started Remdesivir 01/25, already on dexamethasone. Had one dose tocilizumab 01/25. Monitor ALT, PT, renal function; ALT is sl elevated at 50, Pt normal, creat clearance is normal. Keep volume status dry. O2 to maintain saturation 90%. Little reserve. Now, alternating between nonrebreather with AirVo with BiPAP; maximum settings with 100% FiO2, with recovery to 94% a half hour after coughing excessively. She is marginal, however does not appear to be on the edge of intubation. DVT prophylaxis. (2) Acute respiratory failure: Code(s): J96.00 - Acute respiratory failure, unspecified whether with hypoxia or hypercapnia Status: Acute Assessment and Plan: see above on 60 L/min and 90%, saturation 90%+ Subjective Date/time seen: 01/26/21 19:08 61 year old female seen in follow up for COVID pneumonia with acute hypoxemic respiratory failure. She was moved to ICU overnight. She is more alert, and able to think more clearly. Oxygen is good for the brain. She is not having pain, less short of breath. Has coughing but not as severe. no hemoptysis. Review of Systems Review of Systems: All systems reviewed & are unremarkable except as noted in HPI and below Exam Narrative: GEN: mild distress; using 60 L/min and 90%, saturation 94%. She could be weaned. HEENT: pupils equal, face is symmetric NECK: stocky, no palpable lymph nodes CHEST: equal air entry, posterior crackles in bases. CV: distant S1S2, regular. Difficult to auscultate with large adipose on chest ABD : + bowel sounds Extremities : trace edema Objective Data Vital Signs Vital Signs: Vital Signs - 24 hr 01/25/21 20:00 01/25/21 21:07 01/25/21 21:26 Temperature 36.4 C L Pulse Rate 76 84 82 Respiratory Rate 22 H Blood Pressure 163/87 H Pulse Oximetry 91 93 01/25/21 22:00 01/26/21 00:00 01/26/21 01:00 Temperature 36.7 C Pulse Rate 74 77 Respiratory Rate 32 H Blood Pressure 156/83 H Pulse Oximetry 89 L 99 01/26/21 01:42 01/26/21 02:00 01/26/21 03:09 Temperature Pulse Rate 81 57 L 69 Respiratory Rate 27 H 29 H 21 H Blood Pressure 126/70 Pulse Oximetry 98 100 100 01/26/21 03:17 01/26/21 04:00 01/26/21 06:00 Temperature 37.1 C Pulse Rate 69 57 L 67 Respiratory Rate 25 H 25 H 27 H Blood Pressure 130/72 140/75 Pulse Oximetry 98 99 01/26/21 07:58 01/26/21 08:00 01/26/21 08:15 Temperature Pulse Rate 68 65 65 Respiratory Rate 28 H 30 H 31 H Blood Pressure 143/74 H Pulse Oximetry 92 01/26/21 08:30 01/26/21 10:00 01/26/21 11:28 Temperature 36.6 C Pulse Rate 75 Respiratory Rate 26 H Blood Pressure 151/81 H Pulse Oximetry 95 96 94 01/26/21 12:00 01/26/21 13:48 01/26/21 13:53 Temperature Pulse Rate 72 84 78 Respiratory Rate 30 H 20 Blood Pressure 149/74 H Pulse Oximetry 96 01/26/21 13:57 01/26/21 14:00 01/26/21 14:02 Temperature Pulse Rate 80 80 77 Respiratory Rate 28 H 20 Blood Pressure Pulse Oximetry 94 95 01/26/21 16:00 01/26/21 17:53 01/26/21 18:00 Temperature 36.3 C L Pulse Rate 85 82 74 Respiratory Rate 26 H 24 H Blood Pressure 157/85 H Pulse Oximetry 94 96 Intake/Output Intake/Output: Intake & Output 01/23/21 01/24/21 01/25/21 01/26/21 23:59 23:59 23:59 23:59 Intake Total 1100 3045 Output Total 4000 Balance 1100 -955 Meds/Results Medications: Active Medications Generic Name Dose Route Start Last A
[2021-01-27] VITALS (22 sets, daily range): BP systolic 128–167; BP diastolic 73–102; PULSE 57–94; RESP 19–38; TEMP 36.6–36.9; O2SAT 91–100
--- NOTE | 2021-01-27 | ECHO_ITS ---
Patient Info Name: Lynn Marques Age: 61 years : 1960 Gender: Female Ht: 63 in Wt: 253 lbs BSA: 2.33 m2 HR: 67 bpm BP: 144 / 73 mmHg Heart Rhythm: Sinus Rhythm Technical Quality: Fair Exam Date: 01/27/2021 11:36 AM Exam Location: [facility] Pulmonary Exam Room: ICU12 Patient Status: Inpatient Admit Date: 01/24/2021 Staff Ordering Physician: Sai Murdock [employer] Commercial Groundskeeper: Haylee Stanley RDCS Attending Provider: Donald Gusman MD Referring Physician: Mathieu GRIER; Exam Type: CA echo doppler color flow Study Info Indications R06.00 - Dyspnea, unspecified - COVID Complete two-dimensional, color flow and Doppler transthoracic echocardiogram is performed. Summary 1. Complete two-dimensional, color flow and Doppler transthoracic echocardiogram is performed. 2. Normal left ventricular size and thickness with good contractility of all segments. Visually estimated ejection fraction is 60-65%. No focal wall motion abnormalities. Grade 1 diastolic dysfunction is present. 3. No significant valve disease. 4. No pulmonary hypertension, estimated pulmonary arterial systolic pressure is 34 mmHg. 5. Normal sinus rhythm. Left Ventricle Left ventricular chamber dimension is normal. Left ventricular systolic function is normal, estimated at 60-65%. There is no increased left ventricular wall thickness. Left ventricular septal wall motion is normal. The left ventricular diastolic function is grade I diastolic dysfunction. Right Ventricle Right ventricular chamber dimension is normal. Right ventricular systolic function is normal. Left Atria Left atrial chamber dimension is normal. Right Atria Right atrial chamber dimension is normal. Aortic Valve The aortic valve is trileaflet. There is no aortic valve sclerosis. There is no aortic valve stenosis. There is no aortic valve regurgitation. Pulmonic Valve The pulmonic valve is normal. There is no pulmonic valve stenosis. There is no pulmonic regurgitation. Mitral Valve The mitral valve has thickened leaflets. There is no mitral valve stenosis. There is trace mitral valve regurgitation. Tricuspid Valve The tricuspid valve leaflets are normal. There is no significant tricuspid valve stenosis. There is trace tricuspid valve regurgitation. No pulmonary hypertension, estimated pulmonary arterial systolic pressure is 34 mmHg. Pericardium/Pleural The pericardium appears normal. There is no pericardial effusion. Inferior Vena Cava Normal inferior vena cava with >50% collapse upon inspiration consistent with Empty right atrial pressure, 10 mmHg. Aorta The aortic root size at the sinus of Valsalva is normal. The prox ascending aorta size is normal. Left Ventricular Outflow Tract Name Value Normal LVOT 2D LVOT Diameter 2.0 cm LVOT Doppler LVOT Peak Gradient 5 mmHg LVOT Mean Gradient 3 mmHg LVOT VTI 24 cm LVOT VTI/AV VTI Ratio 0.7 LVOT Stroke Volume 72 ml
[2021-01-27] MEDS: hydrALAZINE HCL 25 MG TABLET PO ×2 (00:29→20:14)
[2021-01-27] MEDS: INSULIN ASPART (*BKC) 100 UNITS/ML SUB-Q ×4 (00:29→20:16)
[2021-01-27 00:36] LABS: Glucose Point of Care 246 mg/dl (65-105)
[2021-01-27 05:24] LABS: CRP 4.4 mg/dL (<1.0); Lactate Dehydrogenase 1163 U/L (313-618)
[2021-01-27 05:27] LABS: Alanine Aminotransferase 43 U/L (4-35); Albumin Level 3.2 g/dL (3.5-5.1); Alkaline Phosphatase 68 U/L (38-126); Anion Gap 9 mmol/L (8-16); Aspartate Amino Transferase 39 U/L (14-36); Bilirubin,Total 0.3 mg/dL (0.2-1.3); Blood Urea Nitrogen 14 mg/dL (7-17); Calcium 9.2 mg/dL (8.4-10.2); Carbon Dioxide 26 mmol/L (22-30); Chloride 99 mmol/L (98-107); Estimated CRCL calculation 101 ml/min; Estimated Glomerular Filt Rate > 60; Glucose 194 mg/dL (65-110); Magnesium 2.3 mg/dL (1.6-2.3); Potassium 4.5 mmol/L (3.4-5.0); Sodium 134 mmol/L (137-145)
[2021-01-27 05:51] LABS: Hemoglobin 11.3 g/dL (12.0-15.0); Mean Corpuscular HGB Conc 32.3 g/dl (32-36); Mean Corpuscular Hemoglobin 26.3 pg (26-34); Mean Corpuscular Volume 81.4 fl (80-100); Platelet Count Result 428 k/mm3 (150-375); Red Cell Distribution Width 14.3 % (11.5-14.5); White Blood Count 10.1 K/mm3 (4.5-10.0)
[2021-01-27 07:17] LABS: Hemoglobin A1C 7.3 % (<5.7)
[2021-01-27] MEDS: guaiFENesin 12 HR 600 MG TABCR PO ×2 (09:16→20:10)
[2021-01-27] MEDS: PANTOPRAZOLE SODIUM IV 40 MG VIAL IV PUSH (09:16)
[2021-01-27] MEDS: DEXAMETHASONE SOD PHOS INJ 4 MG/ML VIAL 6 MG IV PUSH ×2 (09:16→18:27)
[2021-01-27] MEDS: ZINC SULFATE 220 MG CAPSULE PO (09:16)
[2021-01-27] MEDS: ASCORBIC ACID 500 MG TABLET 1000 MG PO ×2 (09:16→20:10)
[2021-01-27] MEDS: CHOLECALCIFEROL 1,000 UNITS TABLET 1000 UNITS PO (09:16)
[2021-01-27] MEDS: ENOXAPARIN 40 MG/0.4 ML SYRINGE SUB-Q ×2 (09:16→20:10)
[2021-01-27] MEDS: REMDESIVIR 100 MG/NS 250 ML 100 MG/250 ML BAG 250 MG IVPB (12:24)
[2021-01-27 12:37] LABS: Glucose Point of Care 324 mg/dl (65-105)
--- NOTE | 2021-01-27 13:13 | WPDINTPN ---
Progress Note: A&P Assessment and Plan (1) Acute respiratory failure: Code(s): J96.00 - Acute respiratory failure, unspecified whether with hypoxia or hypercapnia Status: Acute Assessment and Plan: Acute respiratory failure secondary to COVID-19 pneumonia Patient was on CPAP last night 10 cm of water with 70% Switched to airvo this morning and currently on 80% is 60 L flow Continue Airvo Will use BiPAP on p.r.n. basis (2) COVID-19: Code(s): U07.1 - COVID-19 Status: Acute Assessment and Plan: SARS-CoV-2 PCR positive Patient is in Airborne, Droplet and Contact Isolation Continue dexamethasone , remdesivir - started 01/25 Tocilizumab - 01/25 Off antibiotics which were started on admission Follow inflammatory periodically (3) Hyperglycemia: Code(s): R73.9 - Hyperglycemia, unspecified Status: Acute Assessment and Plan: Could be secondary to steroids versus undiagnosed diabetes Advance diet to diabetic Change sliding scale and add Lantus check HbA1c Additional Plan DVT prophylaxis -Lovenox 40 subQ q.12 hours Stress ulcer prophylaxis -add PPI Nutrition -diabetic diet Code Status -I had long discussion with patient today and she was very clear that she does not want to be intubated. I explained that if her respiratory failure worsens then BiPAP or Airvo may not be enough to maintain adequate oxygenation. She she told me that she does not want to go on a ventilator no matter what the cost is. She verbalized understanding that she may even if she does not bone to be intubated if noninvasive modes are in adequate to maintain oxygenation. She also did not want to be resuscitated in the event of cardiac arrest. I have changed code status in the chart as per patient's wishes Total Critical Care Time - 32 minutes Due to a high probability of clinically significant, life threatening deterioration, the patient required my highest level of preparedness to intervene emergently and I personally spent this critical care time directly and personally managing the patient. This critical care time included obtaining a history; examining the patient; pulse oximetry; ordering and review of studies; arranging urgent treatment with development of a management plan; evaluation of patient's response to treatment; frequent reassessment; and discussions with other providers. It was exclusive of separately billable procedures and treating other patients and teaching time. Please see Assessment and Plan section and the rest of the note for further information on patient assessment and treatment Subjective Date/time seen: 01/27/21 13:13 Patient states she feeling better today as compared to yesterday. She is breathing better. Shortness of breath is mainly on exertion. Dry cough. No pain Appetite is adequate. Patient denies fever, chest pain, nausea vomiting, abdominal pain,, diarrhea, headache or constipation. We for BiPAP at night and is on Airvo this morning. Sitting up in a chair Review of Systems Review of Systems: All systems reviewed & are unremarkable except as noted in HPI and below (Subjective) Exam Narrative: General: Pt is alert awake and in NAD Lungs/Chest: Trachea central coarse BS B/L, No crackles or wheezing. Cardiac: RRR. Normal S1 S2. No murmurs Circulation: Pedal pulses are intact and symmetrical. Abdomen: Normal bowel sounds. Obese. Soft. NT. ND. Extremities: No clubbing, cyanosis or edema. Warm : Morales in place Neurologic: Follows commands. Moves all 4 extremities PERRL alert oriented x3 Skin: No Rash Objective Data Vital Signs Vital Signs: Vital Signs - 24 hr 01/26/21 13:48 01/26/21 13:53 01/26/21 13:57 Temperature Pulse Rate 84 78 80 Respiratory Rate 20 Blood Pressure Pulse Oximetry 94 01/26/21 14:00 01/26/21 14:02 01/26/21 16:00 Temperature 36.3 C L Pulse Rate 80 77 85 Respiratory Rate 28 H 20 26 H Blood Pressure 157/85 H Puls
[2021-01-27] MEDS: INSULIN GLARGINE (*BKC) 100 UNITS/ML 30 UNITS SUB-Q (14:35)
[2021-01-27 18:39] LABS: Glucose Point of Care 278 mg/dl (65-105)
[2021-01-27] MEDS: DOCUSATE SODIUM 100 MG CAPSULE PO (20:10)
[2021-01-27] MEDS: SODIUM CHLORIDE NASAL GEL 14.1 GM 1 APPLIC NASAL (20:11)
[2021-01-27 21:03] LABS: Glucose Point of Care 319 mg/dl (65-105)
[2021-01-28] VITALS (24 sets, daily range): BP systolic 131–171; BP diastolic 84–101; PULSE 61–89; RESP 15–34; TEMP 36.2–37.1; O2SAT 92–100
[2021-01-28 04:48] LABS: Hemoglobin 11.3 g/dL (12.0-15.0); Mean Corpuscular HGB Conc 30.5 g/dl (32-36); Mean Corpuscular Hemoglobin 25.6 pg (26-34); Mean Corpuscular Volume 83.7 fl (80-100); Mean Platelet Volume 9.6 fl (7.4-10.4); Platelet Count Result 473 k/mm3 (150-375); Red Blood Count 4.42 M/mm3 (4.2-5.4); Red Cell Distribution Width 14.2 % (11.5-14.5)
[2021-01-28 05:03] LABS: Alanine Aminotransferase 48 U/L (4-35); Albumin Level 3.2 g/dL (3.5-5.1); Alkaline Phosphatase 63 U/L (38-126); Anion Gap 7 mmol/L (8-16); Aspartate Amino Transferase 47 U/L (14-36); Bilirubin,Total 0.3 mg/dL (0.2-1.3); Blood Urea Nitrogen 16 mg/dL (7-17); Calcium 9.2 mg/dL (8.4-10.2); Carbon Dioxide 26 mmol/L (22-30); Chloride 99 mmol/L (98-107); Estimated CRCL calculation 101 ml/min; Estimated Glomerular Filt Rate > 60; Glucose 164 mg/dL (65-110); Magnesium 2.2 mg/dL (1.6-2.3); Potassium 4.4 mmol/L (3.4-5.0); Sodium 132 mmol/L (137-145)
[2021-01-28 05:21] LABS: Prothrombin Time 13.2 Seconds (11.1-14.7)
[2021-01-28] MEDS: INSULIN GLARGINE (*BKC) 100 UNITS/ML 30 UNITS SUB-Q (07:57)
[2021-01-28 08:01] LABS: Glucose Point of Care 119 mg/dl (65-105)
[2021-01-28] MEDS: ENOXAPARIN 40 MG/0.4 ML SYRINGE SUB-Q ×2 (09:12→21:26)
[2021-01-28] MEDS: CHOLECALCIFEROL 1,000 UNITS TABLET 1000 UNITS PO (09:13)
[2021-01-28] MEDS: ZINC SULFATE 220 MG CAPSULE PO (09:13)
[2021-01-28] MEDS: PANTOPRAZOLE SODIUM IV 40 MG VIAL IV PUSH (09:13)
[2021-01-28] MEDS: guaiFENesin 12 HR 600 MG TABCR PO ×2 (09:13→21:26)
[2021-01-28] MEDS: ASCORBIC ACID 500 MG TABLET 1000 MG PO ×2 (09:13→21:26)
[2021-01-28] MEDS: DEXAMETHASONE SOD PHOS INJ 4 MG/ML VIAL 6 MG IV PUSH ×2 (09:14→17:29)
[2021-01-28] MEDS: DOCUSATE SODIUM 100 MG CAPSULE PO ×2 (09:22→21:26)
[2021-01-28] MEDS: REMDESIVIR 100 MG/NS 250 ML 100 MG/250 ML BAG 250 MG IVPB (11:00)
--- NOTE | 2021-01-28 11:50 | WPDINTPN ---
Progress Note: A&P Assessment and Plan (1) Acute respiratory failure: Code(s): J96.00 - Acute respiratory failure, unspecified whether with hypoxia or hypercapnia Status: Acute Assessment and Plan: Acute respiratory failure secondary to COVID-19 pneumonia. Patient required BiPAP for 1-2 days on arrival to ICU but currently has been on Airvo over last 36 hours currently on 80% FiO2 and 60 L flow will continue Will use BiPAP on p.r.n. basis (2) COVID-19: Code(s): U07.1 - COVID-19 Status: Acute Assessment and Plan: SARS-CoV-2 PCR positive Patient is in Airborne, Droplet and Contact Isolation Continue dexamethasone , remdesivir - started 01/25 Tocilizumab - 01/25 Off antibiotics which were started on admission Follow inflammatory periodically (3) Hyperglycemia: Code(s): R73.9 - Hyperglycemia, unspecified Status: Acute Assessment and Plan: Could be secondary to steroids but likely has undiagnosed diabetes controlled improved after adding Lantus currently on diabetic continue sliding scale and add Lantus check HbA1c Additional Plan DVT prophylaxis -Lovenox 40 subQ q.12 hours Stress ulcer prophylaxis - continue PPI Nutrition -diabetic diet Code Status -01/27 I had long discussion with patient today and she was very clear that she does not want to be intubated. I explained that if her respiratory failure worsens then BiPAP or Airvo may not be enough to maintain adequate oxygenation. She she told me that she does not want to go on a ventilator no matter what the cost is. She verbalized understanding that she may even if she does not bone to be intubated if noninvasive modes are in adequate to maintain oxygenation. She also did not want to be resuscitated in the event of cardiac arrest. I have changed code status in the chart as per patient's wishes Total Critical Care Time - 30 minutes Due to a high probability of clinically significant, life threatening deterioration, the patient required my highest level of preparedness to intervene emergently and I personally spent this critical care time directly and personally managing the patient. This critical care time included obtaining a history; examining the patient; pulse oximetry; ordering and review of studies; arranging urgent treatment with development of a management plan; evaluation of patient's response to treatment; frequent reassessment; and discussions with other providers. It was exclusive of separately billable procedures and treating other patients and teaching time. Please see Assessment and Plan section and the rest of the note for further information on patient assessment and treatment Subjective Date/time seen: 01/28/21 11:50 she wore Airvo all night and did not need BiPAP. She is currently on 60 L and 80% FiO2 she states she feels fine and does not feel short of breath. she does have cough denies any pain. appetite adequate afebrile sat in chair yesterday claims to be compliant with incentive spirometry Patient denies fever, chest pain, shortness of breath, nausea vomiting, abdominal pain,, diarrhea, headache or constipation. Review of Systems Review of Systems: All systems reviewed & are unremarkable except as noted in HPI and below (Subjective) Exam Narrative: General: Pt is alert awake and in NAD Lungs/Chest: Trachea central coarse BS B/L, No crackles or wheezing. Cardiac: RRR. Normal S1 S2. No murmurs Circulation: Pedal pulses are intact and symmetrical. Abdomen: Normal bowel sounds. Obese. Soft. NT. ND. Extremities: No clubbing, cyanosis or edema. Warm : Morales in place Neurologic: Follows commands. Moves all 4 extremities PERRL alert oriented x3 Skin: No Rash Objective Data Vital Signs Vital Signs: Vital Signs - 24 hr 01/27/21 12:00 01/27/21 12:36 01/27/21 14:00 Temperature 36.9 C Pulse Rate 76 87 61 Respiratory Rate 22 H 20 28 H Blood Pressure 145/85 H Pulse Oxim
[2021-01-28 12:18] LABS: Glucose Point of Care 140 mg/dl (65-105)
[2021-01-28] MEDS: polyethylene glycoL 3350 17 GM POWD.PACK PO (18:15)
[2021-01-28 19:07] LABS: Glucose Point of Care 161 mg/dl (65-105)
[2021-01-28] MEDS: SODIUM CHLORIDE NASAL GEL 14.1 GM 1 APPLIC NASAL (21:26)
[2021-01-28 21:40] LABS: Glucose Point of Care 191 mg/dl (65-105)
[2021-01-29] VITALS (21 sets, daily range): BP systolic 125–165; BP diastolic 50–96; PULSE 64–96; RESP 16–25; TEMP 36.4–37.1; O2SAT 90–100
[2021-01-29 05:54] LABS: Hematocrit 36.2 % (37.0-47.0); Hemoglobin 11.9 g/dL (12.0-15.0); Mean Corpuscular HGB Conc 32.9 g/dl (32-36); Mean Corpuscular Hemoglobin 26.1 pg (26-34); Mean Corpuscular Volume 79.4 fl (80-100); Mean Platelet Volume 9.4 fl (7.4-10.4); Platelet Count Result 503 k/mm3 (150-375); Red Blood Count 4.56 M/mm3 (4.2-5.4); White Blood Count 12.4 K/mm3 (4.5-10.0)
[2021-01-29 06:08] LABS: Prothrombin Time 13.1 Seconds (11.1-14.7)
[2021-01-29 06:10] LABS: Alanine Aminotransferase 62 U/L (4-35); Albumin Level 3.4 g/dL (3.5-5.1); Alkaline Phosphatase 72 U/L (38-126); Anion Gap 4 mmol/L (8-16); Aspartate Amino Transferase 55 U/L (14-36); Bilirubin,Total 0.4 mg/dL (0.2-1.3); Blood Urea Nitrogen 17 mg/dL (7-17); CRP 1.9 mg/dL (<1.0); Calcium 9.5 mg/dL (8.4-10.2); Carbon Dioxide 26 mmol/L (22-30); Chloride 102 mmol/L (98-107); Estimated CRCL calculation 88 ml/min; Estimated Glomerular Filt Rate > 60; Glucose 144 mg/dL (65-110); Magnesium 2.3 mg/dL (1.6-2.3); Potassium 4.3 mmol/L (3.4-5.0); Sodium 132 mmol/L (137-145)
[2021-01-29 06:24] LABS: Lactate Dehydrogenase 1198 U/L (313-618)
[2021-01-29 09:05] LABS: Glucose Point of Care 130 mg/dl (65-105)
[2021-01-29] MEDS: guaiFENesin 12 HR 600 MG TABCR PO ×2 (09:31→20:42)
[2021-01-29] MEDS: DOCUSATE SODIUM 100 MG CAPSULE PO ×2 (09:31→20:42)
[2021-01-29] MEDS: ZINC SULFATE 220 MG CAPSULE PO (09:31)
[2021-01-29] MEDS: ASCORBIC ACID 500 MG TABLET 1000 MG PO ×2 (09:31→20:42)
[2021-01-29] MEDS: CHOLECALCIFEROL 1,000 UNITS TABLET 1000 UNITS PO (09:31)
[2021-01-29] MEDS: DEXAMETHASONE SOD PHOS INJ 4 MG/ML VIAL 6 MG IV PUSH ×2 (09:31→17:03)
[2021-01-29] MEDS: ENOXAPARIN 40 MG/0.4 ML SYRINGE SUB-Q ×2 (09:32→20:42)
[2021-01-29] MEDS: PANTOPRAZOLE SODIUM IV 40 MG VIAL IV PUSH (09:32)
[2021-01-29] MEDS: INSULIN GLARGINE (*BKC) 100 UNITS/ML 30 UNITS SUB-Q (09:52)
[2021-01-29] MEDS: REMDESIVIR 100 MG/NS 250 ML 100 MG/250 ML BAG 250 MG IVPB (11:58)
[2021-01-29 12:44] LABS: Glucose Point of Care 179 mg/dl (65-105)
[2021-01-29 18:00] LABS: Glucose Point of Care 194 mg/dl (65-105)
[2021-01-29] MEDS: INSULIN ASPART (*BKC) 100 UNITS/ML SUB-Q (20:30)
[2021-01-29 20:33] LABS: Glucose Point of Care 247 mg/dl (65-105)
[2021-01-29] MEDS: SODIUM CHLORIDE NASAL GEL 14.1 GM 1 APPLIC NASAL (20:43)
[2021-01-30] VITALS (22 sets, daily range): BP systolic 100–138; BP diastolic 57–86; PULSE 67–102; RESP 12–28; TEMP 36.2–37.1; O2SAT 9–97
[2021-01-30 07:09] LABS: Hematocrit 38.8 % (37.0-47.0); Mean Corpuscular HGB Conc 30.9 g/dl (32-36); Mean Corpuscular Hemoglobin 25.9 pg (26-34); Mean Corpuscular Volume 83.6 fl (80-100); Mean Platelet Volume 9.7 fl (7.4-10.4); Platelet Count Result 539 k/mm3 (150-375); Red Blood Count 4.64 M/mm3 (4.2-5.4); Red Cell Distribution Width 14.6 % (11.5-14.5); White Blood Count 15.6 K/mm3 (4.5-10.0)
[2021-01-30 08:03] LABS: Alanine Aminotransferase 64 U/L (4-35); Albumin Level 3.5 g/dL (3.5-5.1); Alkaline Phosphatase 72 U/L (38-126); Anion Gap 6 mmol/L (8-16); Aspartate Amino Transferase 51 U/L (14-36); Bilirubin,Total 0.5 mg/dL (0.2-1.3); Blood Urea Nitrogen 19 mg/dL (7-17); Calcium 9.7 mg/dL (8.4-10.2); Carbon Dioxide 23 mmol/L (22-30); Chloride 107 mmol/L (98-107); Estimated CRCL calculation 88 ml/min; Estimated Glomerular Filt Rate > 60; Glucose 114 mg/dL (65-110); Magnesium 2.4 mg/dL (1.6-2.3); Potassium 4.6 mmol/L (3.4-5.0); Sodium 136 mmol/L (137-145)
[2021-01-30 09:04] LABS: Glucose Point of Care 112 mg/dl (65-105)
[2021-01-30] MEDS: INSULIN GLARGINE (*BKC) 100 UNITS/ML 30 UNITS SUB-Q (10:08)
[2021-01-30] MEDS: ENOXAPARIN 40 MG/0.4 ML SYRINGE SUB-Q ×2 (10:08→21:09)
[2021-01-30] MEDS: ZINC SULFATE 220 MG CAPSULE PO (10:09)
[2021-01-30] MEDS: PANTOPRAZOLE SODIUM IV 40 MG VIAL IV PUSH (10:09)
[2021-01-30] MEDS: ASCORBIC ACID 500 MG TABLET 1000 MG PO ×2 (10:09→21:08)
[2021-01-30] MEDS: DEXAMETHASONE SOD PHOS INJ 4 MG/ML VIAL 6 MG IV PUSH ×2 (10:09→17:39)
[2021-01-30] MEDS: polyethylene glycoL 3350 17 GM POWD.PACK PO (10:10)
[2021-01-30] MEDS: guaiFENesin 12 HR 600 MG TABCR PO ×2 (10:10→21:09)
[2021-01-30] MEDS: CHOLECALCIFEROL 1,000 UNITS TABLET 1000 UNITS PO (10:10)
[2021-01-30] MEDS: DOCUSATE SODIUM 100 MG CAPSULE PO ×2 (10:10→21:14)
[2021-01-30 12:58] LABS: Glucose Point of Care 200 mg/dl (65-105)
--- NOTE | 2021-01-30 16:41 | PM.IMPN ---
Progress Note: A&P Assessment and Plan (1) Acute respiratory failure: Code(s): J96.00 - Acute respiratory failure, unspecified whether with hypoxia or hypercapnia Status: Acute Assessment and Plan: Acute respiratory failure secondary to COVID-19 pneumonia. Patient required BiPAP for 1-2 days on arrival to ICU but currently has been on Airvo over last 36 hours currently on 80% FiO2 and 60 L flow will continue Will use BiPAP on p.r.n. basis 01/30/21 16:41 patient is a 61-year-old female COVID positive upon arrival on01/26 patient was started on on dexamethasone 6mg on 01/25 10/23, Remdesivir on 01/25 completed today, patient was given Tocillizumab on 01/25 and Lovenox 40mg BID sc, initially patient was admitted in ICU with acute respiratory failure secondary to hypercapnia, and has improved and now on high-flow oxygen out of ICU in IMU, patient is feeling little better not a short of breath, patient denies any fever or chill, will continue present managment and will monitor patient. (2) COVID-19: Code(s): U07.1 - COVID-19 Status: Acute Assessment and Plan: SARS-CoV-2 PCR positive Patient is in Airborne, Droplet and Contact Isolation Continue dexamethasone , remdesivir - started 01/25 Tocilizumab - 01/25 Off antibiotics which were started on admission Follow inflammatory periodically (3) Hyperglycemia: Code(s): R73.9 - Hyperglycemia, unspecified Status: Acute Assessment and Plan: Could be secondary to steroids but likely has undiagnosed diabetes controlled improved after adding Lantus currently on diabetic continue sliding scale and add Lantus check HbA1c Subjective Date/time seen: 01/30/21 16:41 patient is a 61-year-old female COVID positive upon arrival on01/26 patient was started on on dexamethasone 6mg on 01/25 10/23, Remdesivir on 01/25 completed today, patient was given Tocillizumab on 01/25 and Lovenox 40mg BID sc, initially patient was admitted in ICU with acute respiratory failure secondary to hypercapnia, and has improved and now on high-flow oxygen out of ICU in IMU, patient is feeling little better not a short of breath, patient denies any fever or chill, will continue present managment and will monitor patient. Review of Systems Review of Systems: All systems reviewed & are unremarkable except as noted in HPI and below Exam Narrative: morbidly obese Patient is comfortable, NAD HEENT: eyes are clear and none icteric, high-flow nasal cannula LUNGS: normal respiratory effort ABD: distended Lower extremities: no edema SKIN: nonjaundiced Neuro: grossly intact good speech. Objective Data Vital Signs Vital Signs: Vital Signs - 24 hr 01/29/21 18:00 01/29/21 18:04 01/29/21 20:00 Temperature 97.5 F L 98.1 F Pulse Rate 83 84 92 Respiratory Rate 22 H 24 H Blood Pressure 140/80 125/76 Pulse Oximetry 97 92 01/29/21 21:31 01/29/21 22:00 01/29/21 23:11 Temperature 97.7 F Pulse Rate 96 64 75 Respiratory Rate 20 22 H Blood Pressure 130/86 Pulse Oximetry 90 01/30/21 00:00 01/30/21 02:00 01/30/21 03:02 Temperature Pulse Rate 70 68 67 Respiratory Rate 20 Blood Pressure Pulse Oximetry 90 01/30/21 03:20 01/30/21 04:00 01/30/21 06:00 Temperature 97.5 F L Pulse Rate 78 78 78 Respiratory Rate 20 20 Blood Pressure 126/83 Pulse Oximetry 91 01/30/21 08:00 01/30/21 09:22 01/30/21 09:33 Temperature 98.7 F Pulse Rate 95 87 86 Respiratory Rate 28 H 22 H 24 H Blood Pressure 100/60 Pulse Oximetry 90 90 90 01/30/21 10:00 01/30/21 12:00 01/30/21 14:00 Temperature 97.1 F L Pulse Rate 86 84 80 Respiratory Rate 16 Blood Pressure 128/72 Pulse Oximetry 91 01/30/21 14:06 01/30/21 14:18 01/30/21 16:00 Temperature Pulse Rate 94 97 83 Respiratory Rate 24 H 24 H Blood Pressure Pulse Oximetry 92 92 9 L Intake/Output Intake/Output: Intake & Output 01/27/21 01/28/21 01/29/21
[2021-01-30 16:54] LABS: Glucose Point of Care 257 mg/dl (65-105)
[2021-01-30] MEDS: INSULIN ASPART (*BKC) 100 UNITS/ML SUB-Q (17:39)
[2021-01-30 20:23] LABS: Glucose Point of Care 215 mg/dl (65-105)
[2021-01-30] MEDS: SODIUM CHLORIDE NASAL GEL 14.1 GM 1 APPLIC NASAL (21:09)
[2021-01-31] VITALS (24 sets, daily range): BP systolic 110–139; BP diastolic 69–88; PULSE 70–98; RESP 18–24; TEMP 36.5–37.2; O2SAT 90–97
[2021-01-31 06:18] LABS: Hemoglobin 12.1 g/dL (12.0-15.0); Mean Corpuscular HGB Conc 31.8 g/dl (32-36); Mean Corpuscular Hemoglobin 26.2 pg (26-34); Mean Corpuscular Volume 82.4 fl (80-100); Mean Platelet Volume 9.4 fl (7.4-10.4); Platelet Count Result 492 k/mm3 (150-375); Red Blood Count 4.61 M/mm3 (4.2-5.4); Red Cell Distribution Width 14.8 % (11.5-14.5); White Blood Count 18.2 K/mm3 (4.5-10.0)
[2021-01-31 06:34] LABS: Alanine Aminotransferase 71 U/L (4-35); Albumin Level 3.4 g/dL (3.5-5.1); Alkaline Phosphatase 71 U/L (38-126); Anion Gap 6 mmol/L (8-16); Aspartate Amino Transferase 60 U/L (14-36); Bilirubin,Total 0.5 mg/dL (0.2-1.3); Blood Urea Nitrogen 17 mg/dL (7-17); CRP 0.5 mg/dL (<1.0); Calcium 9.5 mg/dL (8.4-10.2); Carbon Dioxide 22 mmol/L (22-30); Chloride 107 mmol/L (98-107); Estimated CRCL calculation 88 ml/min; Estimated Glomerular Filt Rate > 60; Glucose 111 mg/dL (65-110); Lactate Dehydrogenase 1566 U/L (313-618); Magnesium 2.4 mg/dL (1.6-2.3); Potassium 4.4 mmol/L (3.4-5.0); Sodium 135 mmol/L (137-145)
[2021-01-31 08:45] LABS: Glucose Point of Care 109 mg/dl (65-105)
[2021-01-31] MEDS: ASCORBIC ACID 500 MG TABLET 1000 MG PO ×2 (10:33→20:46)
[2021-01-31] MEDS: CHOLECALCIFEROL 1,000 UNITS TABLET 1000 UNITS PO (10:33)
[2021-01-31] MEDS: ENOXAPARIN 40 MG/0.4 ML SYRINGE SUB-Q ×2 (10:33→20:46)
[2021-01-31] MEDS: guaiFENesin 12 HR 600 MG TABCR PO ×2 (10:33→20:45)
[2021-01-31] MEDS: ZINC SULFATE 220 MG CAPSULE PO (10:34)
[2021-01-31] MEDS: PANTOPRAZOLE SODIUM IV 40 MG VIAL IV PUSH (10:34)
[2021-01-31] MEDS: DEXAMETHASONE SOD PHOS INJ 4 MG/ML VIAL 6 MG IV PUSH ×2 (10:34→18:12)
[2021-01-31] MEDS: polyethylene glycoL 3350 17 GM POWD.PACK PO (10:37)
[2021-01-31] MEDS: DOCUSATE SODIUM 100 MG CAPSULE PO ×2 (10:37→20:45)
[2021-01-31 12:04] LABS: Glucose Point of Care 165 mg/dl (65-105)
[2021-01-31 12:55] LABS: Ferritin 647 ng/mL (8-252)
--- NOTE | 2021-01-31 13:12 | PCDIET ---
Weekly nutritional screen. Patient is tolerating current diet with adequate intake. No weight loss reported. Spoke with patient via phone due to COVID isolation. Patient denies nutrition related concerns and feels she is eating pretty well. No nutritional needs at this time.
[2021-01-31 15:52] LABS: Glucose Point of Care 242 mg/dl (65-105)
[2021-01-31] MEDS: INSULIN ASPART (*BKC) 100 UNITS/ML SUB-Q ×2 (18:13→20:48)
--- NOTE | 2021-01-31 18:20 | PM.IMPN ---
Progress Note: A&P Assessment and Plan (1) Acute respiratory failure: Code(s): J96.00 - Acute respiratory failure, unspecified whether with hypoxia or hypercapnia Status: Acute Assessment and Plan: Acute respiratory failure secondary to COVID-19 pneumonia. Patient required BiPAP for 1-2 days on arrival to ICU but currently has been on Airvo over last 36 hours currently on 80% FiO2 and 60 L flow will continue Will use BiPAP on p.r.n. basis 01/31/21 18:20 01/30 patient is a 61-year-old female COVID positive upon arrival on01/26 patient was started on on dexamethasone 6mg on 01/25 10/23, Remdesivir on 01/25 completed today, patient was given Tocillizumab on 01/25 and Lovenox 40mg BID sc, initially patient was admitted in ICU with acute respiratory failure secondary to hypercapnia, and has improved and now on high-flow oxygen out of ICU in IMU, patient is feeling little better not a short of breath, patient denies any fever or chill, will continue present managment and will monitor patient. 01/31patient is a 61-year-old female COVID positive upon arrival on01/26 patient was started on on dexamethasone 6mg on 01/25 11/23, Remdesivir on 01/25 completed 5 day course on 01/30, patient was given Tocillizumab on 01/25 and on Lovenox 40mg BID sc, patient remains clinically stable on 50L high-flow nasal cannula, patient is encouraged to sleep on prone position discussed with her nurse to help place the patient in prone position, will continue to monitor and further recommendation to follow. (2) COVID-19: Code(s): U07.1 - COVID-19 Status: Acute Assessment and Plan: SARS-CoV-2 PCR positive Patient is in Airborne, Droplet and Contact Isolation Continue dexamethasone , remdesivir - started 01/25 Tocilizumab - 01/25 Off antibiotics which were started on admission Follow inflammatory periodically (3) Hyperglycemia: Code(s): R73.9 - Hyperglycemia, unspecified Status: Acute Assessment and Plan: Could be secondary to steroids but likely has undiagnosed diabetes controlled improved after adding Lantus currently on diabetic continue sliding scale and add Lantus check HbA1c Subjective Date/time seen: 01/31/21 18:20 01/30 patient is a 61-year-old female COVID positive upon arrival on01/26 patient was started on on dexamethasone 6mg on 01/25 10/23, Remdesivir on 01/25 completed today, patient was given Tocillizumab on 01/25 and Lovenox 40mg BID sc, initially patient was admitted in ICU with acute respiratory failure secondary to hypercapnia, and has improved and now on high-flow oxygen out of ICU in IMU, patient is feeling little better not a short of breath, patient denies any fever or chill, will continue present managment and will monitor patient. 01/31patient is a 61-year-old female COVID positive upon arrival on01/26 patient was started on on dexamethasone 6mg on 01/25 11/23, Remdesivir on 01/25 completed 5 day course on 01/30, patient was given Tocillizumab on 01/25 and on Lovenox 40mg BID sc, patient remains clinically stable on 50L high-flow nasal cannula, patient is encouraged to sleep on prone position discussed with her nurse to help place the patient in prone position, will continue to monitor and further recommendation to follow. Review of Systems Review of Systems: All systems reviewed & are unremarkable except as noted in HPI and below Exam Narrative: morbidly obese Patient is comfortable, NAD HEENT: eyes are clear and none icteric, high-flow nasal cannula LUNGS: normal respiratory effort ABD: distended Lower extremities: no edema SKIN: nonjaundiced Neuro: grossly intact good speech. Objective Data Vital Signs Vital Signs: Vital Signs - 24 hr 01/30/21 19:36 01/30/21 20:00 01/30/21 20:14 Temperature 98.7 F Pulse Rate 102 H 83 82 Respiratory Rate 12 26 H Blood Pressure 111/57 L Pulse Oximetry 90 94 91 01/30/21 20:21 01/30/21 22:00 01/30/21 23:42 Temperature 97.9 F
[2021-01-31] MEDS: SODIUM CHLORIDE NASAL GEL 14.1 GM 1 APPLIC NASAL (20:45)
[2021-01-31 20:46] LABS: Glucose Point of Care 227 mg/dl (65-105)
[2021-02-01] VITALS (23 sets, daily range): BP systolic 96–130; BP diastolic 66–80; PULSE 55–98; RESP 12–24; TEMP 36.4–37; O2SAT 85–99
[2021-02-01 05:44] LABS: Hematocrit 38.5 % (37.0-47.0); Hemoglobin 12.3 g/dL (12.0-15.0); Mean Corpuscular HGB Conc 31.9 g/dl (32-36); Mean Corpuscular Hemoglobin 25.9 pg (26-34); Mean Corpuscular Volume 81.2 fl (80-100); Mean Platelet Volume 9.6 fl (7.4-10.4); Platelet Count Result 494 k/mm3 (150-375); Red Blood Count 4.74 M/mm3 (4.2-5.4); Red Cell Distribution Width 14.8 % (11.5-14.5); White Blood Count 14.6 K/mm3 (4.5-10.0)
[2021-02-01 06:03] LABS: Alanine Aminotransferase 90 U/L (4-35); Albumin Level 3.5 g/dL (3.5-5.1); Alkaline Phosphatase 69 U/L (38-126); Anion Gap 7 mmol/L (8-16); Aspartate Amino Transferase 54 U/L (14-36); Bilirubin,Total 0.5 mg/dL (0.2-1.3); Blood Urea Nitrogen 16 mg/dL (7-17); CRP < 0.5 mg/dL (<1.0); Calcium 9.6 mg/dL (8.4-10.2); Carbon Dioxide 23 mmol/L (22-30); Chloride 106 mmol/L (98-107); Estimated CRCL calculation 88 ml/min; Estimated Glomerular Filt Rate > 60; Glucose 120 mg/dL (65-110); Potassium 4.9 mmol/L (3.4-5.0); Sodium 136 mmol/L (137-145)
[2021-02-01] MEDS: PANTOPRAZOLE SODIUM IV 40 MG VIAL IV PUSH (08:32)
[2021-02-01] MEDS: DEXAMETHASONE SOD PHOS INJ 4 MG/ML VIAL 6 MG IV PUSH ×2 (08:32→16:37)
[2021-02-01] MEDS: ZINC SULFATE 220 MG CAPSULE PO (08:33)
[2021-02-01] MEDS: ENOXAPARIN 40 MG/0.4 ML SYRINGE SUB-Q ×2 (08:33→21:14)
[2021-02-01] MEDS: CHOLECALCIFEROL 1,000 UNITS TABLET 1000 UNITS PO (08:33)
[2021-02-01] MEDS: ASCORBIC ACID 500 MG TABLET 1000 MG PO ×2 (08:33→21:14)
[2021-02-01] MEDS: guaiFENesin 12 HR 600 MG TABCR PO ×2 (08:33→21:14)
[2021-02-01] MEDS: INSULIN GLARGINE (*BKC) 100 UNITS/ML 30 UNITS SUB-Q (08:33)
[2021-02-01] MEDS: DOCUSATE SODIUM 100 MG CAPSULE PO ×2 (08:33→21:14)
[2021-02-01 08:55] LABS: Glucose Point of Care 101 mg/dl (65-105)
[2021-02-01 12:20] LABS: Glucose Point of Care 160 mg/dl (65-105)
[2021-02-01] MEDS: INSULIN ASPART (*BKC) 100 UNITS/ML SUB-Q ×2 (16:37→21:14)
[2021-02-01 17:37] LABS: Glucose Point of Care 204 mg/dl (65-105)
--- NOTE | 2021-02-01 18:53 | PM.IMPN ---
Progress Note: A&P Assessment and Plan (1) Acute respiratory failure: Code(s): J96.00 - Acute respiratory failure, unspecified whether with hypoxia or hypercapnia Status: Acute Assessment and Plan: Acute respiratory failure secondary to COVID-19 pneumonia. Patient required BiPAP for 1-2 days on arrival to ICU but currently has been on Airvo over last 36 hours currently on 80% FiO2 and 60 L flow will continue Will use BiPAP on p.r.n. basis 02/01/21 18:53 01/30 patient is a 61-year-old female COVID positive upon arrival on01/26 patient was started on on dexamethasone 6mg on 01/25 10/23, Remdesivir on 01/25 completed today, patient was given Tocillizumab on 01/25 and Lovenox 40mg BID sc, initially patient was admitted in ICU with acute respiratory failure secondary to hypercapnia, and has improved and now on high-flow oxygen out of ICU in IMU, patient is feeling little better not a short of breath, patient denies any fever or chill, will continue present managment and will monitor patient. 01/31patient is a 61-year-old female COVID positive upon arrival on01/26 patient was started on on dexamethasone 6mg on 01/25 11/23, Remdesivir on 01/25 completed 5 day course on 01/30, patient was given Tocillizumab on 01/25 and on Lovenox 40mg BID sc, patient remains clinically stable on 50L high-flow nasal cannula, patient is encouraged to sleep on prone position discussed with her nurse to help place the patient in prone position, will continue to monitor and further recommendation to follow. 02/01 patient is a 61-year-old female COVID positive upon arrival on01/26 patient was started on on dexamethasone 6mg BID on 01/25 12/23, Remdesivir on 01/25 completed 5 day course on 01/30, patient was given Tocillizumab on 01/25 and on Lovenox 40mg BID sc, Today patient is sitting in the chair is feeling better not a short of breath, patient is encouraged to sleep in prone position when possible, will continue to monitor will have a PT OT evaluate the the patient. (2) COVID-19: Code(s): U07.1 - COVID-19 Status: Acute Assessment and Plan: SARS-CoV-2 PCR positive Patient is in Airborne, Droplet and Contact Isolation Continue dexamethasone , remdesivir - started 01/25 Tocilizumab - 01/25 Off antibiotics which were started on admission Follow inflammatory periodically (3) Hyperglycemia: Code(s): R73.9 - Hyperglycemia, unspecified Status: Acute Assessment and Plan: Could be secondary to steroids but likely has undiagnosed diabetes controlled improved after adding Lantus currently on diabetic continue sliding scale and add Lantus check HbA1c Subjective Date/time seen: 02/01/21 18:53 01/30 patient is a 61-year-old female COVID positive upon arrival on01/26 patient was started on on dexamethasone 6mg on 01/25 10/23, Remdesivir on 01/25 completed today, patient was given Tocillizumab on 01/25 and Lovenox 40mg BID sc, initially patient was admitted in ICU with acute respiratory failure secondary to hypercapnia, and has improved and now on high-flow oxygen out of ICU in IMU, patient is feeling little better not a short of breath, patient denies any fever or chill, will continue present managment and will monitor patient. 01/31patient is a 61-year-old female COVID positive upon arrival on01/26 patient was started on on dexamethasone 6mg on 01/25 11/23, Remdesivir on 01/25 completed 5 day course on 01/30, patient was given Tocillizumab on 01/25 and on Lovenox 40mg BID sc, patient remains clinically stable on 50L high-flow nasal cannula, patient is encouraged to sleep on prone position discussed with her nurse to help place the patient in prone position, will continue to monitor and further recommendation to follow. 02/01 patient is a 61-year-old female COVID positive upon arrival on01/26 patient was started on on dexamethasone 6mg BID on 01/25 12/23, Remdesivir on 01/25 completed 5 day course on 01/30, patient was given Tocillizumab on 01/25 and on
[2021-02-01 21:07] LABS: Glucose Point of Care 235 mg/dl (65-105)
[2021-02-01] MEDS: SODIUM CHLORIDE NASAL GEL 14.1 GM 1 APPLIC NASAL (21:37)
[2021-02-02] VITALS (22 sets, daily range): BP systolic 118–170; BP diastolic 71–91; PULSE 56–111; RESP 18–24; TEMP 36.6–37.1; O2SAT 93–100
[2021-02-02 06:06] LABS: Hemoglobin 12.9 g/dL (12.0-15.0); Mean Corpuscular HGB Conc 31.5 g/dl (32-36); Mean Corpuscular Hemoglobin 26.3 pg (26-34); Mean Corpuscular Volume 83.7 fl (80-100); Mean Platelet Volume 9.7 fl (7.4-10.4); Platelet Count Result 465 k/mm3 (150-375); Red Cell Distribution Width 15.4 % (11.5-14.5); White Blood Count 15.5 K/mm3 (4.5-10.0)
[2021-02-02 07:17] LABS: Alanine Aminotransferase 99 U/L (4-35); Albumin Level 3.8 g/dL (3.5-5.1); Alkaline Phosphatase 77 U/L (38-126); Anion Gap 6 mmol/L (8-16); Aspartate Amino Transferase 50 U/L (14-36); Bilirubin,Total 0.5 mg/dL (0.2-1.3); Blood Urea Nitrogen 19 mg/dL (7-17); CRP < 0.5 mg/dL (<1.0); Calcium 9.8 mg/dL (8.4-10.2); Carbon Dioxide 22 mmol/L (22-30); Chloride 107 mmol/L (98-107); Estimated CRCL calculation 86 ml/min; Estimated Glomerular Filt Rate > 60; Glucose 134 mg/dL (65-110); Lactate Dehydrogenase 1168 U/L (313-618); Potassium 4.6 mmol/L (3.4-5.0); Sodium 135 mmol/L (137-145)
[2021-02-02] MEDS: guaiFENesin 12 HR 600 MG TABCR PO ×2 (09:16→20:00)
[2021-02-02] MEDS: ZINC SULFATE 220 MG CAPSULE PO (09:16)
[2021-02-02] MEDS: PANTOPRAZOLE SODIUM IV 40 MG VIAL IV PUSH (09:16)
[2021-02-02] MEDS: DEXAMETHASONE SOD PHOS INJ 4 MG/ML VIAL 6 MG IV PUSH ×2 (09:16→17:56)
[2021-02-02] MEDS: ASCORBIC ACID 500 MG TABLET 1000 MG PO ×2 (09:17→20:00)
[2021-02-02] MEDS: INSULIN GLARGINE (*BKC) 100 UNITS/ML 30 UNITS SUB-Q (09:17)
[2021-02-02] MEDS: DOCUSATE SODIUM 100 MG CAPSULE PO ×2 (09:17→20:00)
[2021-02-02] MEDS: ENOXAPARIN 40 MG/0.4 ML SYRINGE SUB-Q ×2 (09:17→20:00)
[2021-02-02] MEDS: CHOLECALCIFEROL 1,000 UNITS TABLET 1000 UNITS PO (09:17)
[2021-02-02 09:23] LABS: Glucose Point of Care 118 mg/dl (65-105)
[2021-02-02] MEDS: polyethylene glycoL 3350 17 GM POWD.PACK PO (09:23)
[2021-02-02 13:20] LABS: Glucose Point of Care 163 mg/dl (65-105)
[2021-02-02] MEDS: LEVALBUTEROL HFA (*SP) 15 GM INHALER 2 PUFF INHALATION ×2 (13:52→20:32)
--- NOTE | 2021-02-02 16:25 | PM.IMPN ---
Progress Note: A&P Assessment and Plan (1) Acute respiratory failure: Code(s): J96.00 - Acute respiratory failure, unspecified whether with hypoxia or hypercapnia Status: Acute Assessment and Plan: Acute respiratory failure secondary to COVID-19 pneumonia. Patient required BiPAP for 1-2 days on arrival to ICU but currently has been on Airvo over last 36 hours currently on 80% FiO2 and 60 L flow will continue Will use BiPAP on p.r.n. basis 02/02/21 16:25 01/30 patient is a 61-year-old female COVID positive upon arrival on01/26 patient was started on on dexamethasone 6mg on 01/25 10/23, Remdesivir on 01/25 completed today, patient was given Tocillizumab on 01/25 and Lovenox 40mg BID sc, initially patient was admitted in ICU with acute respiratory failure secondary to hypercapnia, and has improved and now on high-flow oxygen out of ICU in IMU, patient is feeling little better not a short of breath, patient denies any fever or chill, will continue present managment and will monitor patient. 01/31patient is a 61-year-old female COVID positive upon arrival on01/26 patient was started on on dexamethasone 6mg on 01/25 11/23, Remdesivir on 01/25 completed 5 day course on 01/30, patient was given Tocillizumab on 01/25 and on Lovenox 40mg BID sc, patient remains clinically stable on 50L high-flow nasal cannula, patient is encouraged to sleep on prone position discussed with her nurse to help place the patient in prone position, will continue to monitor and further recommendation to follow. 02/01 patient is a 61-year-old female COVID positive upon arrival on01/26 patient was started on on dexamethasone 6mg BID on 01/25 12/23, Remdesivir on 01/25 completed 5 day course on 01/30, patient was given Tocillizumab on 01/25 and on Lovenox 40mg BID sc, Today patient is sitting in the chair is feeling better not a short of breath, patient is encouraged to sleep in prone position when possible, will continue to monitor will have a PT OT evaluate the the patient. 02/02 patient is a 61-year-old female COVID positive upon arrival on01/26 patient was started on on dexamethasone 6mg BID on 01/25 01/23, Remdesivir on 01/25 completed 5 day course on 01/30, patient was given Tocillizumab on 01/25 and on Lovenox 40mg BID today patient sitting in the chair stated slept on prone position last night and feeling much better her oxygen requirement is also trending down from 50 L to 40 L, patient encouraged continue to sleep on prone position, patient continue to work with PT OT, will continue to monitor, and further recommendation to follow. (2) COVID-19: Code(s): U07.1 - COVID-19 Status: Acute Assessment and Plan: SARS-CoV-2 PCR positive Patient is in Airborne, Droplet and Contact Isolation Continue dexamethasone , remdesivir - started 01/25 Tocilizumab - 01/25 Off antibiotics which were started on admission Follow inflammatory periodically (3) Hyperglycemia: Code(s): R73.9 - Hyperglycemia, unspecified Status: Acute Assessment and Plan: Could be secondary to steroids but likely has undiagnosed diabetes controlled improved after adding Lantus currently on diabetic continue sliding scale and add Lantus check HbA1c Subjective Date/time seen: 02/02/21 16:25 01/30 patient is a 61-year-old female COVID positive upon arrival on01/26 patient was started on on dexamethasone 6mg on 01/25 10/23, Remdesivir on 01/25 completed today, patient was given Tocillizumab on 01/25 and Lovenox 40mg BID sc, initially patient was admitted in ICU with acute respiratory failure secondary to hypercapnia, and has improved and now on high-flow oxygen out of ICU in IMU, patient is feeling little better not a short of breath, patient denies any fever or chill, will continue present managment and will monitor patient. 01/31patient is a 61-year-old female COVID positive upon arrival on01/26 patient was started on on dexamethasone 6mg on 01/25 11/23, Remdesivir on 01/25 com
[2021-02-02 17:54] LABS: Glucose Point of Care 199 mg/dl (65-105)
[2021-02-02] MEDS: SODIUM CHLORIDE NASAL GEL 14.1 GM 1 APPLIC NASAL (20:01)
[2021-02-02 21:16] LABS: Glucose Point of Care 241 mg/dl (65-105)
[2021-02-02] MEDS: INSULIN ASPART (*BKC) 100 UNITS/ML SUB-Q (21:30)
[2021-02-03] VITALS (19 sets, daily range): BP systolic 112–156; BP diastolic 60–94; PULSE 51–100; RESP 20; TEMP 36.3–37; O2SAT 80–100
[2021-02-03] MEDS: LEVALBUTEROL HFA (*SP) 15 GM INHALER 2 PUFF INHALATION ×4 (02:06→21:13)
[2021-02-03 05:28] LABS: Hematocrit 43.9 % (37.0-47.0); Hemoglobin 13.8 g/dL (12.0-15.0); Mean Corpuscular HGB Conc 31.4 g/dl (32-36); Mean Corpuscular Hemoglobin 26.5 pg (26-34); Mean Corpuscular Volume 84.3 fl (80-100); Mean Platelet Volume 10.3 fl (7.4-10.4); Platelet Count Result 439 k/mm3 (150-375); Red Blood Count 5.21 M/mm3 (4.2-5.4); Red Cell Distribution Width 15.5 % (11.5-14.5); White Blood Count 16.1 K/mm3 (4.5-10.0)
[2021-02-03 05:42] LABS: Alanine Aminotransferase 94 U/L (4-35); Albumin Level 3.8 g/dL (3.5-5.1); Alkaline Phosphatase 76 U/L (38-126); Anion Gap 8 mmol/L (8-16); Aspartate Amino Transferase 38 U/L (14-36); Bilirubin,Total 0.6 mg/dL (0.2-1.3); Blood Urea Nitrogen 19 mg/dL (7-17); CRP < 0.5 mg/dL (<1.0); Calcium 10.2 mg/dL (8.4-10.2); Carbon Dioxide 24 mmol/L (22-30); Chloride 104 mmol/L (98-107); Estimated CRCL calculation 86 ml/min; Estimated Glomerular Filt Rate > 60; Glucose 129 mg/dL (65-110); Sodium 136 mmol/L (137-145)
[2021-02-03 08:00] LABS: Glucose Point of Care 111 mg/dl (65-105)
[2021-02-03] MEDS: guaiFENesin 12 HR 600 MG TABCR PO ×2 (08:31→21:30)
[2021-02-03] MEDS: DOCUSATE SODIUM 100 MG CAPSULE PO ×2 (08:31→21:30)
[2021-02-03] MEDS: CHOLECALCIFEROL 1,000 UNITS TABLET 1000 UNITS PO (08:31)
[2021-02-03] MEDS: ASCORBIC ACID 500 MG TABLET 1000 MG PO ×2 (08:31→21:30)
[2021-02-03] MEDS: ZINC SULFATE 220 MG CAPSULE PO (08:31)
[2021-02-03] MEDS: DEXAMETHASONE SOD PHOS INJ 4 MG/ML VIAL 6 MG IV PUSH ×2 (08:32→17:14)
[2021-02-03] MEDS: ENOXAPARIN 40 MG/0.4 ML SYRINGE SUB-Q ×2 (08:32→21:30)
[2021-02-03] MEDS: PANTOPRAZOLE SODIUM IV 40 MG VIAL IV PUSH (08:33)
[2021-02-03] MEDS: INSULIN GLARGINE (*BKC) 100 UNITS/ML 30 UNITS SUB-Q (08:54)
[2021-02-03 13:19] LABS: Glucose Point of Care 175 mg/dl (65-105)
[2021-02-03 16:34] LABS: Glucose Point of Care 189 mg/dl (65-105)
--- NOTE | 2021-02-03 17:04 | PM.IMPN ---
Progress Note: A&P Assessment and Plan (1) Acute respiratory failure: Code(s): J96.00 - Acute respiratory failure, unspecified whether with hypoxia or hypercapnia Status: Acute Assessment and Plan: 02/03: Airvo 35 L (trending down) (2) COVID-19: Code(s): U07.1 - COVID-19 Status: Acute Assessment and Plan: SARS-CoV-2 PCR positive 01/25 01/25 started Tocilizumab, Remdesivir, Dexamethasone Slow improvement (3) Hyperglycemia: Code(s): R73.9 - Hyperglycemia, unspecified Status: Acute Assessment and Plan: Could be secondary to steroids but likely has undiagnosed diabetes controlled improved after adding Lantus currently on diabetic continue sliding scale Lantus check HbA1c Subjective Date/time seen: 02/03/21 17:04 Interval history: Admitted 01/25 for COVID-19 pneumonia and spent the subsequent 3 days in ICU. 02/03 visit: Denied new issues. Tolerated diet. VERGARA. No cp or swelling or sob at rest. No GI/ issues. Review of Systems Review of Systems: All systems reviewed & are unremarkable except as noted in HPI and below Exam Narrative: HEENT: PERRL, sclerae nonicteric, pharyngeal mucosa pink and intact NECK: No JVD CHEST: Mildly tachyneic on AIRVO, scattered coarse BS, diminished at bases HEART: NL S1/S2, regular, no murmur ABDOMEN: BS+, soft, nontender, no mass, no bruits EXTREMITIES: No cyanosis, edema, or clubbing NEUROLOGIC: CN intact and symmetric to inspection. MUSCULOSKELETAL: Tone and strength symmetric. PSYCH: Alert. Oriented to person, place, and time. Objective Data Vital Signs Vital Signs: Vital Signs - 24 hr 02/02/21 18:00 02/02/21 20:00 02/02/21 20:32 Temperature 98.2 F Pulse Rate 86 111 H 94 Respiratory Rate 20 20 Blood Pressure 118/73 Pulse Oximetry 96 02/02/21 20:33 02/02/21 22:00 02/02/21 23:23 Temperature 98 F Pulse Rate 80 73 Respiratory Rate 20 Blood Pressure 136/73 Pulse Oximetry 96 97 02/03/21 00:00 02/03/21 02:00 02/03/21 02:06 Temperature Pulse Rate 74 52 L 51 L Respiratory Rate 20 Blood Pressure Pulse Oximetry 96 02/03/21 04:00 02/03/21 06:00 02/03/21 06:45 Temperature 97.4 F L Pulse Rate 52 L 54 L Respiratory Rate 20 Blood Pressure 121/60 Pulse Oximetry 98 85 L 02/03/21 07:15 02/03/21 07:30 02/03/21 08:00 Temperature 98.1 F Pulse Rate 67 85 Respiratory Rate 20 Blood Pressure 112/69 Pulse Oximetry 90 80 L 02/03/21 08:20 02/03/21 08:48 02/03/21 10:00 Temperature Pulse Rate 100 Respiratory Rate Blood Pressure Pulse Oximetry 95 92 02/03/21 12:00 02/03/21 12:40 02/03/21 14:00 Temperature 98 F Pulse Rate 86 81 Respiratory Rate 20 Blood Pressure 135/76 Pulse Oximetry 98 95 Intake/Output Intake/Output: Intake & Output 01/31/21 02/01/21 02/02/21 02/03/21 23:59 23:59 23:59 23:59 Intake Total 720 1020 1470 480 Output Total 1900 2800 2800 600 Balance -1180 -1780 -1330 -120 Meds/Results Medications: Active Medications Generic Name Dose Route Start Last Admin Trade Name Freq PRN Reason Stop Dose Admin Acetaminophen 650 mg 01/24/21 23:08 01/25/21 23:59 Acetaminophen 325 Mg Tablet PO 650 mg Q4H PRN Administration Mild Pain (1-3) or Fever Ascorbic Acid 1,000 mg 01/25/21 21:00 02/03/21 08:31 Ascorbic Acid 500 Mg Tablet PO 1,000 mg Q12HR PARRISH Administration Dextrose 12.5 gm 01/26/21 09:51 Dextrose 50% 25 Gm/50 Ml Syringe IV PUSH PRN PRN Hypoglycemia Protocol Docusate Sodium 100 mg 01/26/21 14:30 02/03/21 08:31 Docusate Sodium 100 Mg Capsule PO 100 mg Q12HR PARRISH Administration Enoxaparin Sodium 40 mg 01/25/21 09:00 02/03/21 08:32 Enoxaparin 40 Mg/0.4 Ml Syringe SUB-Q 40 mg Q12HR PARRISH Administration Glucagon 1 mg 01/26/21 09:51 Glucagon For Inj 1 Mg Vial IM PRN PRN Hypoglycemia Protocol Glucose 15 gm 01/26/21 09
[2021-02-03 20:51] LABS: Glucose Point of Care 230 mg/dl (65-105)
[2021-02-03] MEDS: INSULIN ASPART (*BKC) 100 UNITS/ML SUB-Q (21:30)
[2021-02-03] MEDS: SODIUM CHLORIDE NASAL GEL 14.1 GM 1 APPLIC NASAL (21:31)
[2021-02-04] VITALS (16 sets, daily range): BP systolic 101–137; BP diastolic 53–87; PULSE 52–106; RESP 18–20; TEMP 36.3–36.6; O2SAT 93–100
[2021-02-04] MEDS: LEVALBUTEROL HFA (*SP) 15 GM INHALER 2 PUFF INHALATION ×4 (03:16→22:07)
[2021-02-04 07:02] LABS: Glucose Point of Care 124 mg/dl (65-105)
[2021-02-04 08:27] LABS: Hematocrit 39.4 % (37.0-47.0); Hemoglobin 12.6 g/dL (12.0-15.0); Mean Corpuscular Hemoglobin 25.9 pg (26-34); Mean Corpuscular Volume 81.1 fl (80-100); Mean Platelet Volume 10.3 fl (7.4-10.4); Platelet Count Result 391 k/mm3 (150-375); Red Blood Count 4.86 M/mm3 (4.2-5.4); Red Cell Distribution Width 15.1 % (11.5-14.5); White Blood Count 14.6 K/mm3 (4.5-10.0)
[2021-02-04 08:42] LABS: Alanine Aminotransferase 87 U/L (4-35); Albumin Level 3.7 g/dL (3.5-5.1); Alkaline Phosphatase 70 U/L (38-126); Anion Gap 6 mmol/L (8-16); Aspartate Amino Transferase 45 U/L (14-36); Bilirubin,Total 0.6 mg/dL (0.2-1.3); Blood Urea Nitrogen 20 mg/dL (7-17); CRP < 0.5 mg/dL (<1.0); Calcium 9.7 mg/dL (8.4-10.2); Carbon Dioxide 27 mmol/L (22-30); Chloride 103 mmol/L (98-107); Estimated CRCL calculation 76 ml/min; Estimated Glomerular Filt Rate > 60; Glucose 108 mg/dL (65-110); Potassium 4.2 mmol/L (3.4-5.0); Sodium 136 mmol/L (137-145)
[2021-02-04] MEDS: guaiFENesin 12 HR 600 MG TABCR PO ×2 (10:38→20:13)
[2021-02-04] MEDS: DOCUSATE SODIUM 100 MG CAPSULE PO (10:38)
[2021-02-04] MEDS: CHOLECALCIFEROL 1,000 UNITS TABLET 1000 UNITS PO (10:38)
[2021-02-04] MEDS: ZINC SULFATE 220 MG CAPSULE PO (10:38)
[2021-02-04] MEDS: ASCORBIC ACID 500 MG TABLET 1000 MG PO ×2 (10:38→20:13)
[2021-02-04] MEDS: PANTOPRAZOLE SODIUM IV 40 MG VIAL IV PUSH (10:39)
[2021-02-04] MEDS: ENOXAPARIN 40 MG/0.4 ML SYRINGE SUB-Q ×2 (10:39→20:13)
[2021-02-04 12:47] LABS: Glucose Point of Care 117 mg/dl (65-105)
--- NOTE | 2021-02-04 13:22 | PM.IMPN ---
Progress Note: A&P Assessment and Plan (1) Acute respiratory failure: Code(s): J96.00 - Acute respiratory failure, unspecified whether with hypoxia or hypercapnia Status: Acute Assessment and Plan: 02/04: Airvo 35 L (trending down), attempt to wean this PM (2) COVID-19: Code(s): U07.1 - COVID-19 Status: Acute Assessment and Plan: SARS-CoV-2 PCR positive 01/25 01/25 started Tocilizumab, Remdesivir, Dexamethasone Slow improvement (3) Hyperglycemia: Code(s): R73.9 - Hyperglycemia, unspecified Status: Acute Assessment and Plan: Worsened secondary to steroids but likely has undiagnosed diabetes controlled improved after adding Lantus currently on diabetic continue sliding scale Lantus A1c 7.3, c/w type 2 diabetes with hyperglycemia 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 02/04 visit: Denied new issues. Tolerated diet. VERGARA. No cp or swelling or sob at rest. No GI/ issues. Review of Systems Review of Systems: All systems reviewed & are unremarkable except as noted in HPI and below Exam Narrative: HEENT: PERRL, sclerae nonicteric, pharyngeal mucosa pink and intact NECK: No JVD CHEST: Mildly tachyneic on AIRVO, scattered coarse BS, diminished at bases HEART: NL S1/S2, regular, no murmur ABDOMEN: BS+, soft, nontender, no mass, no bruits EXTREMITIES: No cyanosis, edema, or clubbing NEUROLOGIC: CN intact and symmetric to inspection. MUSCULOSKELETAL: Tone and strength symmetric. PSYCH: Alert. Oriented to person, place, and time. Objective Data Vital Signs Vital Signs: Vital Signs - 24 hr 02/03/21 14:00 02/03/21 16:00 02/03/21 18:00 Temperature 98.6 F Pulse Rate 81 65 64 Respiratory Rate 20 Blood Pressure 118/72 Pulse Oximetry 97 02/03/21 20:00 02/03/21 22:00 02/04/21 00:00 Temperature 98.3 F 98 F Pulse Rate 62 71 58 L Respiratory Rate 20 18 Blood Pressure 156/94 H 137/87 Pulse Oximetry 100 96 02/04/21 02:00 02/04/21 04:00 02/04/21 06:00 Temperature 98 F Pulse Rate 84 56 L 58 L Respiratory Rate 20 Blood Pressure 109/68 Pulse Oximetry 96 02/04/21 07:15 02/04/21 09:32 02/04/21 12:00 Temperature 97.8 F 97.7 F Pulse Rate 52 L 83 Respiratory Rate 20 20 Blood Pressure 116/65 118/67 Pulse Oximetry 98 96 97 Intake/Output Intake/Output: Intake & Output 02/01/21 02/02/21 02/03/21 02/04/21 23:59 23:59 23:59 23:59 Intake Total 1020 1470 720 240 Output Total 2800 2800 1300 600 Balance -1780 -1330 -580 -360 Meds/Results Medications: Active Medications Generic Name Dose Route Start Last Admin Trade Name Freq PRN Reason Stop Dose Admin Acetaminophen 650 mg 01/24/21 23:08 01/25/21 23:59 Acetaminophen 325 Mg Tablet PO 650 mg Q4H PRN Administration Mild Pain (1-3) or Fever Ascorbic Acid 1,000 mg 01/25/21 21:00 02/04/21 10:38 Ascorbic Acid 500 Mg Tablet PO 1,000 mg Q12HR PARRISH Administration Dextrose 12.5 gm 01/26/21 09:51 Dextrose 50% 25 Gm/50 Ml Syringe IV PUSH PRN PRN Hypoglycemia Protocol Docusate Sodium 100 mg 01/26/21 14:30 02/04/21 10:38 Docusate Sodium 100 Mg Capsule PO 100 mg Q12HR PARRISH Administration Enoxaparin Sodium 40 mg 01/25/21 09:00 02/04/21 10:39 Enoxaparin 40 Mg/0.4 Ml Syringe SUB-Q 40 mg Q12HR PARRISH Administration Glucagon 1 mg 01/26/21 09:51 Glucagon For Inj 1 Mg Vial IM PRN PRN Hypoglycemia Protocol Glucose 15 gm 01/26/21 09:51 Glucose Oral Gel 15 Gm Of Glucse In 37.5 Gm Tube PO PRN PRN Hypoglycemia Protocol Guaifenesin 600 mg 01/25/21 10:25 02/04/21 10:38 Guaifenesin 12 Hr 600 Mg Tabcr PO 600 mg Q12HR PARRISH Administration Hydralazine HCl 25 mg 01/25/21 20:56 01/27/21 20:14
[2021-02-04] MEDS: metFORMIN HCL 500 MG TABLET PO (18:57)
[2021-02-04 19:24] LABS: Glucose Point of Care 186 mg/dl (65-105)
[2021-02-04] MEDS: SODIUM CHLORIDE NASAL GEL 14.1 GM 1 APPLIC NASAL (20:13)
[2021-02-04 20:50] LABS: Glucose Point of Care 165 mg/dl (65-105)
--- NOTE | 2021-02-04 22:07 | PCRCNOTE ---
pt switched to HFNC 15 liters, sp02 96%, no SOB or increased WOB present. RR-14
[2021-02-05] VITALS (17 sets, daily range): BP systolic 101–139; BP diastolic 51–76; PULSE 58–93; RESP 16–22; TEMP 36.1–36.6; O2SAT 95–100
[2021-02-05] MEDS: LEVALBUTEROL HFA (*SP) 15 GM INHALER 2 PUFF INHALATION ×4 (02:47→20:45)
[2021-02-05] MEDS: ACETAMINOPHEN 325 MG TABLET 650 MG PO (04:58)
[2021-02-05 05:57] LABS: Hemoglobin 12.9 g/dL (12.0-15.0); Mean Corpuscular HGB Conc 31.5 g/dl (32-36); Mean Corpuscular Hemoglobin 26.2 pg (26-34); Mean Corpuscular Volume 83.2 fl (80-100); Mean Platelet Volume 10.3 fl (7.4-10.4); Platelet Count Result 370 k/mm3 (150-375); Red Blood Count 4.93 M/mm3 (4.2-5.4); Red Cell Distribution Width 15.9 % (11.5-14.5); White Blood Count 9.4 K/mm3 (4.5-10.0)
[2021-02-05 06:20] LABS: Alanine Aminotransferase 99 U/L (4-35); Albumin Level 3.6 g/dL (3.5-5.1); Alkaline Phosphatase 72 U/L (38-126); Anion Gap 6 mmol/L (8-16); Aspartate Amino Transferase 53 U/L (14-36); Bilirubin,Total 0.5 mg/dL (0.2-1.3); Blood Urea Nitrogen 20 mg/dL (7-17); CRP < 0.5 mg/dL (<1.0); Calcium 9.6 mg/dL (8.4-10.2); Carbon Dioxide 27 mmol/L (22-30); Chloride 103 mmol/L (98-107); Estimated CRCL calculation 68 ml/min; Estimated Glomerular Filt Rate > 60; Glucose 94 mg/dL (65-110); Sodium 136 mmol/L (137-145)
[2021-02-05 08:50] LABS: Glucose Point of Care 99 mg/dl (65-105)
--- NOTE | 2021-02-05 10:31 | PM.IMPN ---
Progress Note: A&P Assessment and Plan (1) Acute respiratory failure: Qualifiers: Respiratory failure complication: hypoxia Qualified Code(s): J96.01 - Acute respiratory failure with hypoxia Code(s): J96.00 - Acute respiratory failure, unspecified whether with hypoxia or hypercapnia Status: Acute Assessment and Plan: 02/04: Airvo 35 L (trending down), weaning 02/05: High-flow cannula at 10 LPM, to med floor (2) COVID-19: Code(s): U07.1 - COVID-19 Status: Acute Assessment and Plan: SARS-CoV-2 PCR positive 01/25 01/25 started Tocilizumab, Remdesivir, Dexamethasone Slow improvement (3) Type 2 diabetes mellitus with hyperglycemia, without long-term current use of insulin: Code(s): E11.65 - Type 2 diabetes mellitus with hyperglycemia Status: Acute Assessment and Plan: A1c 7.3, c/w type 2 diabetes with hyperglycemia 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 02/05 visit: Denied new issues. Tolerated diet. VERGARA. Now on high-flow cannula. No cp or swelling or sob at rest. No GI/ issues. Review of Systems Review of Systems: All systems reviewed & are unremarkable except as noted in HPI and below Exam Narrative: HEENT: PERRL, sclerae nonicteric, pharyngeal mucosa pink and intact NECK: No JVD CHEST: Mildly tachyneic on AIRVO, scattered coarse BS, diminished at bases HEART: NL S1/S2, regular, no murmur ABDOMEN: BS+, soft, nontender, no mass, no bruits EXTREMITIES: No cyanosis, edema, or clubbing NEUROLOGIC: CN intact and symmetric to inspection. MUSCULOSKELETAL: Tone and strength symmetric. PSYCH: Alert. Oriented to person, place, and time. Objective Data Vital Signs Vital Signs: Vital Signs - 24 hr 02/04/21 12:00 02/04/21 14:00 02/04/21 16:00 Temperature 97.7 F 97.3 F L Pulse Rate 82 80 88 Respiratory Rate 20 18 Blood Pressure 118/67 102/63 Pulse Oximetry 97 97 02/04/21 18:00 02/04/21 20:00 02/04/21 22:00 Temperature 97.6 F Pulse Rate 106 H 75 64 Respiratory Rate 20 Blood Pressure 101/61 Pulse Oximetry 97 02/04/21 23:35 02/05/21 00:00 02/05/21 02:00 Temperature 97.4 F L Pulse Rate 79 63 61 Respiratory Rate 20 Blood Pressure 104/53 L Pulse Oximetry 93 100 02/05/21 02:47 02/05/21 03:33 02/05/21 04:00 Temperature 97.8 F Pulse Rate 74 58 L Respiratory Rate 16 20 Blood Pressure 105/51 L Pulse Oximetry 100 98 02/05/21 06:00 02/05/21 07:07 02/05/21 09:03 Temperature 97.7 F Pulse Rate 62 59 L Respiratory Rate 22 H Blood Pressure 139/76 Pulse Oximetry 99 97 Intake/Output Intake/Output: Intake & Output 02/02/21 02/03/21 02/04/21 02/05/21 23:59 23:59 23:59 23:59 Intake Total 1470 720 720 100 Output Total 2800 1300 1100 Balance -1330 -580 -380 100 Meds/Results Medications: Active Medications Generic Name Dose Route Start Last Admin Trade Name Beatriz PRN Reason Stop Dose Admin Acetaminophen 650 mg 01/24/21 23:08 02/05/21 04:58 Acetaminophen 325 Mg Tablet PO 650 mg Q4H PRN Administration Mild Pain (1-3) or Fever Ascorbic Acid 1,000 mg 01/25/21 21:00 02/04/21 20:13 Ascorbic Acid 500 Mg Tablet PO 1,000 mg Q12HR PARRISH Administration Dextrose 12.5 gm 01/26/21 09:51 Dextrose 50% 25 Gm/50 Ml Syringe IV PUSH PRN PRN Hypoglycemia Protocol Docusate Sodium 100 mg 01/26/21 14:30 02/04/21 20:13 Docusate Sodium 100 Mg Capsule PO Not Given Q12HR PARRISH Enoxaparin Sodium 40 mg 01/25/21 09:00 02/04/21 20:13 Enoxaparin 40 Mg/0.4 Ml Syringe SUB-Q 40 mg Q12HR PARRISH Administration Glucagon 1 mg 01/26/21 09:51 Glucagon For Inj 1 Mg Vial IM PRN PRN Hypoglycemia Protocol Glucose 15 gm 01/26/21 09:51 Glucose Ora
[2021-02-05] MEDS: PANTOPRAZOLE SODIUM IV 40 MG VIAL IV PUSH (10:32)
[2021-02-05] MEDS: metFORMIN HCL 500 MG TABLET PO ×2 (10:32→17:40)
[2021-02-05] MEDS: CHOLECALCIFEROL 1,000 UNITS TABLET 1000 UNITS PO (10:32)
[2021-02-05] MEDS: ASCORBIC ACID 500 MG TABLET 1000 MG PO ×2 (10:32→20:33)
[2021-02-05] MEDS: guaiFENesin 12 HR 600 MG TABCR PO ×2 (10:32→20:33)
[2021-02-05] MEDS: ENOXAPARIN 40 MG/0.4 ML SYRINGE SUB-Q ×2 (10:33→20:32)
[2021-02-05] MEDS: ZINC SULFATE 220 MG CAPSULE PO (10:33)
[2021-02-05] MEDS: DOCUSATE SODIUM 100 MG CAPSULE PO (10:37)
[2021-02-05 12:30] LABS: Glucose Point of Care 125 mg/dl (65-105)
[2021-02-05 17:37] LABS: Glucose Point of Care 150 mg/dl (65-105)
[2021-02-05 20:46] LABS: Glucose Point of Care 118 mg/dl (65-105)
[2021-02-05] MEDS: IBUPROFEN 200 MG TABLET PO (22:28)
[2021-02-05] MEDS: PSEUDOEPHEDRINE HCL 30 MG TABLET PO (22:29)
[2021-02-06] VITALS (15 sets, daily range): BP systolic 116–120; BP diastolic 60–71; PULSE 65–118; RESP 12–20; TEMP 36.6–36.8; O2SAT 86–99
[2021-02-06] MEDS: LEVALBUTEROL HFA (*SP) 15 GM INHALER 2 PUFF INHALATION ×2 (01:39→14:42)
[2021-02-06 05:21] LABS: Hematocrit 37.2 % (37.0-47.0); Hemoglobin 11.9 g/dL (12.0-15.0); Mean Corpuscular Hemoglobin 26.4 pg (26-34); Mean Corpuscular Volume 82.5 fl (80-100); Mean Platelet Volume 11.6 fl (7.4-10.4); Platelet Count Result 268 k/mm3 (150-375); Red Blood Count 4.51 M/mm3 (4.2-5.4); Red Cell Distribution Width 15.4 % (11.5-14.5)
[2021-02-06 05:36] LABS: Alanine Aminotransferase 80 U/L (4-35); Albumin Level 3.4 g/dL (3.5-5.1); Alkaline Phosphatase 73 U/L (38-126); Anion Gap 5 mmol/L (8-16); Aspartate Amino Transferase 37 U/L (14-36); Bilirubin,Total 0.5 mg/dL (0.2-1.3); Blood Urea Nitrogen 16 mg/dL (7-17); Calcium 9.5 mg/dL (8.4-10.2); Carbon Dioxide 26 mmol/L (22-30); Chloride 104 mmol/L (98-107); Estimated CRCL calculation 76 ml/min; Estimated Glomerular Filt Rate > 60; Glucose 118 mg/dL (65-110); Potassium 3.9 mmol/L (3.4-5.0); Sodium 135 mmol/L (137-145)
[2021-02-06] MEDS: metFORMIN HCL 500 MG TABLET PO (08:56)
[2021-02-06] MEDS: guaiFENesin 12 HR 600 MG TABCR PO (08:56)
[2021-02-06] MEDS: CHOLECALCIFEROL 1,000 UNITS TABLET 1000 UNITS PO (08:56)
[2021-02-06] MEDS: ENOXAPARIN 40 MG/0.4 ML SYRINGE SUB-Q (08:56)
[2021-02-06] MEDS: ZINC SULFATE 220 MG CAPSULE PO (08:56)
[2021-02-06] MEDS: ASCORBIC ACID 500 MG TABLET 1000 MG PO (08:56)
[2021-02-06] MEDS: PANTOPRAZOLE SODIUM IV 40 MG VIAL IV PUSH (08:57)
[2021-02-06] MEDS: DOCUSATE SODIUM 100 MG CAPSULE PO (08:58)
[2021-02-06 09:21] LABS: Glucose Point of Care 112 mg/dl (65-105)
--- NOTE | 2021-02-06 10:27 | PCRCNOTE ---
Window of time for administration has passed. See next scheduled administration.
--- NOTE | 2021-02-06 12:06 | PM.DS ---
DS: Admitting Diagnosis Admitting Diagnosis COVID-19 pneumonia DS: Discharge Diagnosis Discharge Diagnosis (1) Acute respiratory failure: Qualifiers: Respiratory failure complication: hypoxia Qualified Code(s): J96.01 - Acute respiratory failure with hypoxia Code(s): J96.00 - Acute respiratory failure, unspecified whether with hypoxia or hypercapnia Status: Acute Assessment and Plan: 02/04: Airvo 35 L (trending down), weaning 02/05: High-flow cannula at 10 LPM, to med floor 02/06: NC 2 L at rest, 4 L with exertion. Home with oxygen. 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 Found to have COVID-19 pneumonia. Worsened. Spent 3 days in ICU. January 25 was treated with tocilizumab. Started course of remdesivir and dexamethasone. Completed these during hospitalization. Gradually improved and was able to wean down to oxygen at 2 liters/minute at rest and 4 liters/minute with exertion. She was discharged home in improving condition. Status at Discharge Functional status at discharge: uses cane/walker Overall status at discharge: patient is progressing back to baseline Time Spent with Patient Time attestation: Total time spent providing and/or coordinating discharge services: Time spent: Greater than 30 minutes Exam Narrative: HEENT: PERRL, sclerae nonicteric, pharyngeal mucosa pink and intact NECK: No JVD CHEST: Mildly tachyneic on AIRVO, scattered coarse BS, diminished at bases HEART: NL S1/S2, regular, no murmur ABDOMEN: BS+, soft, nontender, no mass, no bruits EXTREMITIES: No cyanosis, edema, or clubbing NEUROLOGIC: CN intact and symmetric to inspection. MUSCULOSKELETAL: Tone and strength symmetric. PSYCH: Alert. Oriented to person, place, and time. DS: Data Data Completed and Pending Labs on day of discharge: Labs from last 24 hours 02/06/21 02/06/21 02/06/21 08:29 04:41 04:41 WBC 7.0 RBC 4.51 Hgb 11.9 L Hct 37.2 MCV 82.5 MCH 26.4 MCHC 32.0 RDW 15.4 H Plt Count 268 MPV 11.6 H Sodium 135 L Potassium 3.9 Chloride 104 Carbon Dioxide 26 Anion Gap 5 L BUN 16 Creatinine 0.80 Estim Creat Clear Calc 76 Estimated GFR > 60 Glucose 118 H POC Capillary Glucose 112 H Calcium 9.5 Total Bilirubin 0.5 AST 37 H ALT 80 H Alkaline Phosphatase 73 Total Protein 7.0 Albumin 3.4 L 02/05/21 02/05/21 02/05/21 20:38 17:05 11:47 WBC RBC Hgb Hct MCV MCH MCHC RDW Plt Count MPV Sodium Potassium Chloride Carbon Dioxide Anion Gap BUN Creatinine Estim Creat Clear Calc Estimated GFR Glucose POC Capillary Glucose 118 H 150 H 125 H Calcium Total Bilirubin AST ALT Alkaline Phosphatase Total Protein Albumin Discharge Plan Discharge Consulting providers: Russel Ramachandran ; Mary Alice Terrazas Discharging Clinician: Teodoro Logan Patient Disposition: Home, Self-Care Activity: no driving and as tolerated Diet: diabetic Discharge Instructions: Wear home oxygen 2 LPM at rest, 4 LPM with exertion. Patient Instructions: COVID-19 (Coronavirus Disease 2019) (DC), COVID-19 and Chronic Health Conditions (DC) Stand Alone Forms: General Discharge Information Follow-up/Refe
[2021-02-06 12:49] LABS: Glucose Point of Care 108 mg/dl (65-105)
--- NOTE | 2021-02-06 14:46 | HOMEO2EVAL ---
Evaluation was performed at [facility] Home Oxygen Evaluation RC: Home Oxygen (O2) Evaluation Start: 02/06/21 11:55 Freq: ONCE Status: Active Protocol: RPE Activity Type Activity Date Activity User E-Sign Co-Sign Detail Recorded Client Recorded Date Recorded By Document 02/06/21 14:25 [email or web address] [email or web address] 02/06/21 14:46 JOE Document 02/06/21 14:26 [email or web address] [email or web address] 02/06/21 14:46 JOE Document 02/06/21 14:27 [email or web address] [email or web address] 02/06/21 14:46 JOE Document 02/06/21 14:30 [email or web address] [email or web address] 02/06/21 14:46 JOE Document 02/06/21 14:31 [email or web address] [email or web address] 02/06/21 14:46 JOE Document 02/06/21 14:32 [email or web address] [email or web address] 02/06/21 14:46 JOE Document 02/06/21 14:40 [email or web address] [email or web address] 02/06/21 14:46 JOE 02/06/21 02/06/21 02/06/21 14:25 14:26 14:27 Home O2 Evaluation Test Phase Resting Resting Resting Oxygen Delivery Room Air Nasal Cannula Nasal Cannula Oxygen Flow Rate (L/min) 1 2 Pulse Oximetry (90-100 %) 86 L 86 L 90 Pulse Rate (60-100 beats/min) 86 Home Oxygen Evaluation Comments Treatment Charges O2 Evaluation - Inpatient 02/06/21 02/06/21 02/06/21 14:30 14:31 14:32 Home O2 Evaluation Test Phase Exercise Exercise Exercise Oxygen Delivery Nasal Cannula Nasal Cannula Nasal Cannula Oxygen Flow Rate (L/min) 2 3 4 Pulse Oximetry (90-100 %) 86 L 87 L 90 Pulse Rate (60-100 beats/min) 118 H Home Oxygen Evaluation Comments PT REQUIRES 2L AT REST AND 4 L WITH ACTIVITY Treatment Charges 02/06/21 14:40 Home O2 Evaluation Test Phase Resting Oxygen Delivery Nasal Cannula Oxygen Flow Rate (L/min) 2 Pulse Oximetry (90-100 %) 93 Pulse Rate (60-100 beats/min) 90 Home Oxygen Evaluation Comments Treatment Charges
--- NOTE | 2021-02-06 14:52 | PCRCNOTE ---
HOME O2 EVAL DONE, PT REQUIRES 2L AT REST AND 4 L WITH ACTIVITY. WILL BRING [facility] TO ROOM FOR TRANSPORT HOME. PT INSTRUCTED TO CALL [facility] ARRIVAL AT HOME. ALL PAPERWORK HAS BEEN FAXED
== END 2021-02-06 16:10 | disposition home or self-care (01) | DRG 177 ==
LOC: ANHED 23:04 → ANHIMU 01-25 18:17 → ANHICU 01-26 08:28 → ANHIMU 02-06 12:34 → ANH3MEDSUR 02-07 14:39 → ANHICU 02-07 14:39 → ANHIMU 02-07 14:39
PROVIDERS: Emergency Medicine; Internal Medicine; Nurse Practitioner; Admitting Provider Internal Medicine; Emergency Provider Family Medicine; PCP Internal Medicine; Visit Provider Family Medicine
DX: U07.1 COVID-19 (principal); J12.82 Pneumonia due to coronavirus disease 2019; J96.00 Acute respiratory failure, unspecified whether with hypoxia or hypercapnia; Z68.41 Body mass index [BMI] 40.0-44.9, adult; E66.01 Morbid (severe) obesity due to excess calories; Z66 Do not resuscitate; R73.9 Hyperglycemia, unspecified
CPT/HCPCS: 36415; 36600; 71045; 71046; 71275; 80048; 80053; 80074; 82375; 82728; 82805; 82948; 83036; 83050; 83605; 83615; 83735; 83880; 84145; 84484; 85025; 85027; 85380; 85610; 86140; 87040; 93005; 93306; 94002; 94003; 94618; 94640; 96374; 97110; 97116; 97163; 97165; 97535; 99285; A9270; C9113; C9803; J0456; J0696; J1100; J1650; J1815; J3262; J7030; Q9967; U0003; U0005

== ENCOUNTER 2023-01-21 12:27 | Outpatient (NON) | payer OTHER, SELFPAY | END 2023-01-21 12:28 | disposition home or self-care (01) | PROVIDERS: PCP Internal Medicine; Visit Provider Nurse Practitioner | DX: R22.9 Localized swelling, mass and lump, unspecified (principal) | CPT/HCPCS: 88305 ==